=== PATIENT | female | born 1975 | race Hispanic/Latino ===

== ENCOUNTER 2018-10-24 19:42 | Emergency (ER) | payer BC ==
[~2018-10-24] VITALS: Ht 162.6 cm; Wt 99.8 kg
--- OUTSIDE RECORDS SUMMARY | 2018-10-24 19:45 | XMS REPORT ---
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 Allergies, Adverse Reactions, Alerts Allergy Name Allergy Type Status Severity Reaction(s) Onset Date Inactive Date Treating Clinician Comments No Known Allergies DA Active U 2017-06-06 00:00:00 Medications This patient has no known medications.
--- NOTE | 2018-10-24 20:31 | Diagnostic Imaging Report ---
Examination: Single AP view of the chest. COMPARISON: None. INDICATION: Cough DISCUSSION: Lines/tubes: None. Lungs: The lungs are well inflated and clear. No pneumonia or pulmonary edema. Pleura: No pleural effusion or pneumothorax. Heart and mediastinum: The heart and the mediastinum are unremarkable. Bones and soft tissues: No acute bony abnormalities. IMPRESSION: 1. No acute cardiopulmonary abnormalities. Signed by: Dr. Spike Barrera M.D. on 10/24/2018 8:28 PM
--- NOTE | 2018-10-24 20:52 | Diagnostic Imaging Report ---
EXAMINATION: Head CT without contrast. HISTORY:Headache, dizziness and left arm numbness. COMPARISON:None. TECHNIQUE: Multidetector axial images were obtained from the foramen magnum to the vertex without contrast. The images were reconstructed using brain and bone algorithms. Thin section brain images were reformatted into coronal and sagittal planes. Dose modulation, iterative reconstruction, and/or weight based adjustment of the mA/kV was utilized to reduce the radiation dose to as low as reasonably achievable. Intravenous contrast: None IMAGE QUALITY: Suboptimal evaluation particularly of skull base and posterior fossa structures due to streak artifacts. FINDINGS: Skull/scalp: No lytic or blastic. lesions. No surgical changes. Parenchyma: No abnormal density. No acute hemorrhage, mass or acute major vascular territorial infarct. Arteries: No density suggestive of thrombosis. Dural sinuses: No abnormal density suggestive of thrombosis. Ventricles: No hydrocephalus or displacement. Extra-axial spaces: Small posterior fossa, retrocerebellar extra-axial cystic lesion with mild regional mass effect represents an arachnoid cyst. Brain volume: Normal for age. Craniocervical junction: No mass, Chiari malformation, or basilar invagination. Sella: No mass. Paranasal/mastoid sinuses: Imaged portions unremarkable. IMPRESSION: No acute intracranial abnormality. Signed by: Dr. Gricelda Shepard M.D. on 10/24/2018 8:48 PM
[2018-10-24 21:15] LABS: BASOPHILS % 0.3 % (0.0-1.0); EOSINOPHILS # (AUTO) 0.4 (0.0-0.4); HEMATOCRIT 39.8 % (34.2-44.1); LYMPHOCYTES # (AUTO) 3.5 (1.0-3.2); LYMPHOCYTES % 25.7 % (18.0-39.1); MEAN CORPUSCULAR HEMOGLOBIN 28.6 pg (28-32); MEAN CORPUSCULAR HGB CONC 32.7 g/dL (31-35); MEAN CORPUSCULAR VOLUME 87.5 fL (81-99); MONOCYTES % 6.9 % (4.4-11.3); NEUTROPHILS # (AUTO) 8.6 (2.1-6.9); NEUTROPHILS % 62.9 % (38.7-80.0); PLATELET COUNT 289 x10e3/uL (140-360); RED BLOOD COUNT 4.55 x10e6/uL (3.6-5.1); RED CELL DISTRIBUTION WIDTH 14.6 % (11.7-14.4)
[2018-10-24 21:29] LABS: ALANINE AMINOTRANSFERASE 55 IU/L (0-55); ALBUMIN 3.7 g/dL (3.5-5.0); ALKALINE PHOSPHATASE 75 IU/L (40-150); BLOOD UREA NITROGEN 14 mg/dL (7-26); BUN/CREATININE RATIO 16 (6-25); CALCIUM 10.3 mg/dL (8.4-10.2); CARBON DIOXIDE 25 mmol/L (22-29); CHLORIDE 100 mmol/L (98-107); CREATINE KINASE 49 IU/L (29-168); CREATININE, SERUM 0.86 mg/dL (0.57-1.11); EST GLOMERULAR FILTRATION RATE > 60 ML/MIN (60-); GLUCOSE 101 mg/dL (74-118); SODIUM 135 mmol/L (136-145)
[2018-10-24 22:07] VITALS: BP 122/69
== END 2018-10-24 22:18 | disposition home or self-care (01) ==
LOC: ER 19:42
DX: R53.1 Weakness (principal); R05 Cough; J40 Bronchitis, not specified as acute or chronic; R42 Dizziness and giddiness; R26.2 Difficulty in walking, not elsewhere classified; F41.9 Anxiety disorder, unspecified
CPT/HCPCS: 36415; 70450; 71045; 80053; 82550; 82553; 84484; 85025; 93005; 99284

== ENCOUNTER → 2019-01-03 | Day surgery (SDC) | payer BC ==
[2018-12-28 09:20] LABS: BASOPHILS % 0.4 % (0.0-1.0); EOSINOPHILS # (AUTO) 0.3 (0.0-0.4); EOSINOPHILS % 2.9 % (0.0-6.0); HEMATOCRIT 41.6 % (34.2-44.1); HEMOGLOBIN 13.1 g/dL (12.0-16.0); LYMPHOCYTES # (AUTO) 2.5 (1.0-3.2); LYMPHOCYTES % 23.1 % (18.0-39.1); MEAN CORPUSCULAR HEMOGLOBIN 28.5 pg (28-32); MEAN CORPUSCULAR HGB CONC 31.5 g/dL (31-35); MEAN CORPUSCULAR VOLUME 90.6 fL (81-99); MONOCYTES # (AUTO) 0.6 (0.2-0.8); MONOCYTES % 5.8 % (4.4-11.3); NEUTROPHILS # (AUTO) 7.1 (2.1-6.9); NEUTROPHILS % 65.8 % (38.7-80.0); PLATELET COUNT 250 x10e3/uL (140-360); RED BLOOD COUNT 4.59 x10e6/uL (3.6-5.1); RED CELL DISTRIBUTION WIDTH 14.1 % (11.7-14.4)
[2018-12-28 09:38] LABS: ANION GAP 12.5 mmol/L (8-16); BLOOD UREA NITROGEN 10 mg/dL (7-26); BUN/CREATININE RATIO 14 (6-25); CALCIUM 9.2 mg/dL (8.4-10.2); CARBON DIOXIDE 27 mmol/L (22-29); CHLORIDE 101 mmol/L (98-107); CREATININE, SERUM 0.74 mg/dL (0.57-1.11); EST GLOMERULAR FILTRATION RATE > 60 ML/MIN (60-); GLUCOSE 217 mg/dL (74-118); POTASSIUM 4.5 mmol/L (3.5-5.1); SODIUM 136 mmol/L (136-145)
--- NOTE | 2018-12-28 10:14 | Diagnostic Imaging Report ---
EXAMINATION: CHEST 2 VIEWS INDICATION: Pre-operative COMPARISON: Chest Of 10/24/2018 FINDINGS: LINES/TUBES:None LUNGS:The lungs are well-inflated. No focal consolidation or pulmonary edema. PLEURA:No pleural effusion or pneumothorax. MEDIASTINUM:The cardiomediastinal silhouette appears normal in size and shape. BONES/SOFT TISSUES:No acute osseous injury. ABDOMEN:No free air under the diaphragm. IMPRESSION: No focal pneumonia or pulmonary edema. Signed by: Stalin Mart MD on 12/28/2018 10:11 AM
[~2019-01-03] MED LIST: BETAMETHASONE DISODIUM PHOS 6 MG/ML VIAL ONE; BUPIVACAINE HCL 0.5% INJ 30 ML VIAL INJ ONE; CEFAZOLIN SOD 1 GM/NS 50ML 100 ML IV ONE; DEXAMETHASONE SOD PHOS INJ 4 MG/ML VIAL ONE; FENTANYL CITRATE/PF 100MCG/2 ML INJ ONE; GLYCOPYRROLATE INJ 1MG/ 5 ML SYR ONE; HYDROCODONE/APAP 7.5MG-325MG 1 EA TAB ONE; IBUPROFEN 800MG/ 250ML 250 ML IV ONE; LIDOCAINE HCL 1% LOCAL INJ 20 ML VIAL ONE; LIDOCAINE HCL 2% LOCAL INJ 5 ML SDV VIAL INJ ONE; LISINOPRIL5 MG PO; MIDAZOLAM HCL 2 MG/2 ML VIAL ONE; MUPIROCIN 2% OINT 22 GM TUBE ONE; NEOSTIGMINE 5 MG/5ML SYR ONE; ONDANSETRON HCL INJ 2MG/ML 2ML 2 MG/ML VIAL ONE; PROPOFOL IV EMULSION 10 MG/ML 20 ML VIAL ONE; PROZAC10 MG PO; ROCURONIUM BROMIDE 10 MG/ML 5ML VIAL ONE; SEVOFLURANE INHAL SOLN 250 ML PEN BTL ONE
--- NOTE | 2019-01-03 09:11 | Diagnostic Imaging Report ---
EXAMINATION: FOOT LEFT AP LAT INDICATION: Postoperative COMPARISON: None FINDINGS: AP and lateral portable radiographs of the left foot demonstrate postoperative findings of Achilles repair with a single anchor in the posterior calcaneus. No unexpected fracture. Alignment appears near-anatomic. Mild soft tissue irregularity the posterior ankle soft tissues. Overlying splint material obscures fine bony detail. IMPRESSION: Postoperative changes of the left foot as above. Signed by: Stalin Mart MD on 01/03/2019 9:07 AM
[2019-01-03 09:30] VITALS: BP 147/82
--- NOTE | 2019-01-03 12:06 | Operative Report ---
DATE OF PROCEDURE: 01/03/2019 SURGEON: Franco Pedroza DPM PREOPERATIVE DIAGNOSES: 1. Equinus deformity, left foot. 2. Retrocalcaneal exostosis, left foot. 3. Plantar fasciitis, left foot. POSTOPERATIVE DIAGNOSES: Confirmed. OPERATIVE PROCEDURES: 1. Achilles tendon lengthening V-Y, left foot. 2. Retrocalcaneal exostectomy, left foot. 3. Endoscopic plantar fasciotomy, left foot. 4. Intraoperative use of fluoroscopy. 5. Trigger point shot of cortisone. 6. Application of posterior splint. ANESTHESIA: General. HEMOSTASIS: Pneumatic thigh tourniquet at 350 mmHg. PROCEDURE IN DETAIL: The patient was taken into the operating and placed on the operative table in supine position. Following induction of general anesthesia by the anesthesiologist, Webril wraps were placed on the patient's left thigh, followed by application of left thigh tourniquet. The patient was then placed on the operating table in the prone position and the following procedures were then performed. Thigh tourniquet was then elevated to 350 mmHg. Attention was then directed to the plantar aspect of the left heel, where a stab incision was performed 5 cm from the posterior aspect and 2 cm from the plantar aspect of the left heel. Stab incision was performed medially. A curved hemostat was then introduced to the medial portal and the plantar fascia was felt to be dorsal to the hemostat. A lateral incision was then performed. The cannula was then introduced through and through, and the camera was introduced to the lateral portal of the cannula. The plantar fascia was then clearly visualized. A medial one-quarter to one-half of plantar fascia was then cut utilizing a triangle knife until my plantar fascia release was felt and the muscle was clearly visualized through the scope. All areas were then copiously flushed with sterile antibiotic solution and suctioned. Procedure #2: Achilles tendon lengthening, left foot. Attention was directed to the posterior aspect of the left leg, where a curvilinear incision was performed midline through the tendon, approximately 7 to 8 cm in length. The incision was then deepened via sharp and blunt dissection down to the paratenon. The paratenon was then meticulously dissected from the tendon. A V-Y Achilles tendon lengthening was then performed. An inverted V with the apex distally and the base proximally was then performed to allow for proper lengthening of the tendon. Meticulous dissection was then performed surrounding the insertion of the tendon to the both the medial and lateral aspect. Procedure #3: Retrocalcaneal exostectomy. An intertendinous bone fragment was also removed via sharp and blunt dissection with meticulous dissection. Utilizing an osteotome and a mallet, the retrocalcaneal exostosis was excised from the operation site in toto. All rough and bony edges were rasped smooth via the use of a reciprocating rasp. Utilizing a Mitek anchor, the tendon was then re-attached to the posterior aspect of the Achilles of the calcaneus in a V-Y skin fashion to allow for proper lengthening of the tendon utilizing a Mitek anchor and then reattaching the tendon utilizing 3-0 Vicryl. All areas were then copiously flushed with sterile antibiotic solution and suction. Procedure #4: Intraoperative use of fluoroscopy was then used to make sure proper placement was applied and proper resection of bone was achieved. Closure was then obtained utilizing 3-0 Vicryl for paratenon, 4-0 Vicryl for subcutaneous tissue, and 3-0 nylon for skin respectively to all incision areas. Procedure #5: Trigger point shot of cortisone was then given to the plantar aspect of the left heel. Then, approximately 15 mL of 0.5% plain Marcaine plus 10 mL of 1% Xylocaine plain were used to achieve local anesthesia of above-mentioned surgical area. Sterile dressing was applied. Upon release of the thigh tourniquet, blood hyperemia was noted immediate to all digits of the patient's left foot. Procedure #6: Application of posterior splint. A properly placed posterior splint was then applied keeping the foot at 90 degrees with respect to the leg to try for any type of postop complications. The patient was then transferred from the OR to recovery room with vital signs stable and neurovascular status intact. No intraoperative complications were encountered. Blood loss from the surgery was minimal. The patient is to remain nonweightbearing with the aid of crutches, keep her foot elevated, and is to apply an ice pack to the ankle joint area. KATHERINE Leon/INDIA /[id number]
== END | disposition home or self-care (01) ==
LOC: OR 05:16
PROVIDERS: ATTEND Podiatrist Foot Surgery
DX: M21.6X2 Other acquired deformities of left foot (principal); M77.32 Calcaneal spur, left foot; M72.2 Plantar fascial fibromatosis; E11.9 Type 2 diabetes mellitus without complications; E78.5 Hyperlipidemia, unspecified; F41.9 Anxiety disorder, unspecified; Z01.810 Encounter for preprocedural cardiovascular examination; Z01.812 Encounter for preprocedural laboratory examination; Z01.818 Encounter for other preprocedural examination; I10 Essential (primary) hypertension
CPT/HCPCS: 27685; 28118; 29893; 36415 ×2; 71046; 73620; 80048; 82948; 85025; 93005; C1713; J0690; J0720; J1100; J2001 ×2; J2250; J2405; J2704; J3010; J3490

== ENCOUNTER → 2019-12-18 | Outpatient (CLI) | payer BC ==
[~2019-12-18] MED LIST changes: -BETAMETHASONE DISODIUM PHOS 6 MG/ML VIAL ONE; -BUPIVACAINE HCL 0.5% INJ 30 ML VIAL INJ ONE; -CEFAZOLIN SOD 1 GM/NS 50ML 100 ML IV ONE; -DEXAMETHASONE SOD PHOS INJ 4 MG/ML VIAL ONE; -FENTANYL CITRATE/PF 100MCG/2 ML INJ ONE; -GLYCOPYRROLATE INJ 1MG/ 5 ML SYR ONE; -HYDROCODONE/APAP 7.5MG-325MG 1 EA TAB ONE; -IBUPROFEN 800MG/ 250ML 250 ML IV ONE; -LIDOCAINE HCL 1% LOCAL INJ 20 ML VIAL ONE; -LIDOCAINE HCL 2% LOCAL INJ 5 ML SDV VIAL INJ ONE; -MIDAZOLAM HCL 2 MG/2 ML VIAL ONE; -MUPIROCIN 2% OINT 22 GM TUBE ONE; -NEOSTIGMINE 5 MG/5ML SYR ONE; -ONDANSETRON HCL INJ 2MG/ML 2ML 2 MG/ML VIAL ONE; -PROPOFOL IV EMULSION 10 MG/ML 20 ML VIAL ONE; -ROCURONIUM BROMIDE 10 MG/ML 5ML VIAL ONE; -SEVOFLURANE INHAL SOLN 250 ML PEN BTL ONE
--- NOTE | 2019-12-18 11:12 | Diagnostic Imaging Report ---
EXAM: US ABDOMEN COMPLETE DATE: 12/18/2019 9:52 AM INDICATION: Abdominal pain COMPARISON: None FINDINGS: The visualized pancreas appears unremarkable. The liver is normal in size measuring 15.0 cm in length. Hepatic echogenicity is within normal limits. No focal hepatic abnormality is identified. The main portal vein is patent with antegrade flow and diameter of 0.7 cm, within normal limits. There is a 5 mm echogenic, nonmobile focus identified along the gallbladder wall. There is no evidence for shadowing stones, gallbladder wall thickening, or pericholecystic fluid. There is no intra or extrahepatic biliary ductal dilatation. The common bile duct measures 5 mm. Sonographic Kuo's sign is negative. The spleen is normal in size measuring 10.4 cm in length and demonstrates an unremarkable sonographic appearance. The kidneys are normal in size measuring 11.4 centers in length on the right and 12.2 cm in length on the left. Cortical thickness and echogenicity is within normal limits. There is no evidence for solid renal mass, hydronephrosis, or shadowing calculi. The visualized portions of the IVC and aorta are within normal limits. There is no ascites present. IMPRESSION: 5 mm echogenic focus identified along the gallbladder wall likely representing a tiny polyp. Otherwise, unremarkable abdominal ultrasound examination. Signed by: Dr. Myles Uriarte MD on 12/18/2019 11:09 AM
== END ==
LOC: US 09:36
PROVIDERS: ATTEND Family Medicine
DX: R10.9 Unspecified abdominal pain (principal)
CPT/HCPCS: 76700

== ENCOUNTER 2019-12-20 19:13 | Emergency (ER) | payer BC ==
[~2019-12-20] VITALS: Ht 162.6 cm; Wt 99.8 kg
[2019-12-20] MEDS ORDERED: PANTOPRAZOLE 40 MG 10ML VIAL IV STA (21:20)
[2019-12-20] MEDS ORDERED: ONDANSETRON HCL INJ 2MG/ML 2ML 2 MG/ML VIAL IV STA (21:20)
[2019-12-20] MEDS ORDERED: DICYCLOMINE HCL 20 MG/2 ML VIAL IM ONE (21:30)
[2019-12-20 21:35] LABS: BASOPHILS % 0.3 % (0.0-1.0); EOSINOPHILS # (AUTO) 0.2 (0.0-0.4); HEMATOCRIT 42.4 % (34.2-44.1); HEMOGLOBIN 13.5 g/dL (12.0-16.0); LYMPHOCYTES # (AUTO) 3.5 (1.0-3.2); LYMPHOCYTES % 28.8 % (18.0-39.1); MEAN CORPUSCULAR HEMOGLOBIN 28.7 pg (28-32); MEAN CORPUSCULAR HGB CONC 31.8 g/dL (31-35); MEAN CORPUSCULAR VOLUME 90.2 fL (81-99); MONOCYTES # (AUTO) 0.7 (0.2-0.8); MONOCYTES % 5.6 % (4.4-11.3); NEUTROPHILS # (AUTO) 7.7 (2.1-6.9); NEUTROPHILS % 62.9 % (38.7-80.0); PLATELET COUNT 295 x10e3/uL (140-360); RED CELL DISTRIBUTION WIDTH 13.3 % (11.7-14.4)
[2019-12-20 21:52] LABS: CREATINE KINASE 34 IU/L (29-168)
[2019-12-20 21:53] LABS: AMYLASE 57 U/L (25-125); LIPASE 29 U/L (8-78)
[2019-12-20 21:58] LABS: ALANINE AMINOTRANSFERASE 21 IU/L (0-55); ALBUMIN 4.2 g/dL (3.5-5.0); ALBUMIN/GLOBULIN RATIO 1.2 (0.8-2.0); ALKALINE PHOSPHATASE 92 IU/L (40-150); ANION GAP 15.7 mmol/L (8-16); BLOOD UREA NITROGEN 11 mg/dL (7-26); BUN/CREATININE RATIO 14 (6-25); CALCIUM 9.3 mg/dL (8.4-10.2); CARBON DIOXIDE 25 mmol/L (22-29); CHLORIDE 104 mmol/L (98-107); CREATININE, SERUM 0.79 mg/dL (0.57-1.11); EST GLOMERULAR FILTRATION RATE > 60 ML/MIN (60-); GLUCOSE 90 mg/dL (74-118); POTASSIUM 3.7 mmol/L (3.5-5.1); SODIUM 141 mmol/L (136-145)
[2019-12-20] MEDS ORDERED: SODIUM CHLORIDE 0.9% 50ML 50 ML ONE (22:20)
[2019-12-20] MEDS ORDERED: IOPAMIDOL 370 MG/ML 200 ML INFUS..BTL INJ ONE (22:21)
--- NOTE | 2019-12-20 23:13 | Diagnostic Imaging Report ---
EXAM: CT Abdomen and Pelvis WITH contrast INDICATION: RIGHT FLANK PAIN Intermittent right flank pain for 2 to 3 months. COMPARISON: None. TECHNIQUE: Abdomen and pelvis were scanned utilizing a multidetector helical scanner from the lung base to the pubic symphysis after administration of IV contrast. Coronal and sagittal reformations were obtained. Routine protocol was performed. Scan was performed when during portal venous phase. IV CONTRAST: 100 mL of Isovue 370 ORAL CONTRAST: None COMPLICATIONS: None FINDINGS: LOWER THORAX: 2 mm subpleural right lower lobe pulmonary nodule. HEPATOBILIARY: No focal hepatic lesions. No biliary ductal dilation. GALLBLADDER: No radio-opaque stones or sludge. No wall thickening. SPLEEN: No splenomegaly. PANCREAS: No focal masses or ductal dilatation. ADRENALS: No adrenal nodules KIDNEYS/URETERS: Kidneys enhance symmetrically. No hydronephrosis. No cystic or solid mass lesions. No stones. GI TRACT: No abnormal distention, wall thickening, or evidence of bowel obstruction. Appendix is normal. Evidence of prior bariatric surgery. PELVIC ORGANS/BLADDER: Hysterectomy. 6.0 x 3.6 cm cystic lesion with a few thin septations in the right adnexa. Urinary bladder unremarkable. LYMPH NODES: No lymphadenopathy. VESSELS: Unremarkable. PERITONEUM / RETROPERITONEUM: No free air or fluid. BONES: Unremarkable. SOFT TISSUES: Unremarkable. IMPRESSION: 1. 6.0 x 3.6 cm cystic lesion in the right adnexa. Differential includes hydrosalpinx and ovarian cystic lesions. Recommend pelvic ultrasound for further evaluation. 2. 2 mm subpleural nodule in the right lower lobe. In a low-risk patient, Fleischner Society guidelines do not recommend further follow-up. In a patient with risk factors such as history of malignancy or smoking, consider 12 month follow-up with low-dose chest CT. 3. No urinary tract calculi. Signed by: Jerry Rosa MD on 12/20/2019 11:10 PM
--- NOTE | 2019-12-20 23:21 | Emergency Department Note ---
History of Present Illnes History of Present Illness Chief Complaint: Abdominal Complaints History of Present Illness This is a 44 year old female REPORTS INTERMITTENT RIGHT FLANK PAIN X2-3 MONTHS, WORSE TONIGHT, SENT TO ER FOR EVAL BY DR. LORENZO; PT HAD U/S AT THIS FACILITY 2 DAYS AGO; RESP RATE AND EFFORT ARE WNL, O2 SAT RA 98%. PT DESCRIBES PAIN EPIGASTRIC AND RUQ . Historian: Patient, Family Member Arrival Mode: Car Guest Services Required: No Onset (how long ago): month(s) (3) Location: UPPER ABD Quality: PAIN Radiation: Reports back Severity: moderate Onset quality: sudden Duration (how long): month(s) (3) Timing of current episode: intermittent Progression: waxing and waning Chronicity: recurrent Context: Denies recent illness, Denies recent surgery, Denies trauma/injury, D enies new medications Relieving factors: none Exacerbating factors: none Associated symptoms: Reports denies other symptoms Past Medical/Family History Physician Review I have reviewed the patient's past medical and family history. Any updates have been documented here. Past Medical History Recent Fever: No Clinical Suspicion of Infectio: No New/Unexplained Change in Ment: No Past Medical History: Hypertension, Anxiety, Depression, Hyperlipedemia Past Surgical History: Hysterectomy, Other Surgery: PARTIAL HYSTERECTOMY X3 Social History Smoking Cessation: Never Smoker Counseling Performed: No Alcohol Use: None Any Illegal Drug Use: No Other Last Tetanus: UNK Any Pre-Existing Lines (PICC,: No Review of Systems Review of Systems Constitutional: Reports no symptoms EENTM: Reports no symptoms Cardiovascular: Reports no symptoms Respiratory: Reports no symptoms Gastrointestinal: Reports as per HPI Genitourinary: Reports no symptoms Musculoskeletal: Reports no symptoms Integumentary: Reports no symptoms Neurological: Reports no symptoms Psychological: Reports no symptoms Endocrine: Reports no symptoms Hematological/Lymphatic: Reports no symptoms Physical Exam Related Data Allergies: Coded Allergies: No Known Allergies (Unverified , 10/24/18) Triage Vital Signs Vital Signs Date Time Temp Pulse Resp B/P (MAP) Pulse Ox O2 Delivery O2 Flow Rate FiO2 12/20/19 21:12 98.9 80 18 124/75 99 Room Air Vital signs reviewed: Yes Physical Exam CONSTITUTIONAL Constitutional: Present well-developed, Present well-nourished; Absent distressed HENT HENT: Present normocephalic, Present atraumatic, Present oropharynx clear/moist, Present nose normal HENT L/R: Present left ext ear normal, Present right ext ear normal EYES Eyes: Reports PERRL, Reports conjunctivae normal NECK Neck: Present ROM normal PULMONARY Pulmonary: Present effort normal, Present breath sounds normal CARDIOVASCULAR Cardiovascular: Present regular rhythm, Present heart sounds normal, Present ca pillary refill normal, Present normal rate GASTROINTESTINAL Abdominal: Present soft, Present bowel sounds normal, Present tender (EPIGASTRIC AREA) GENITOURINARY Genitourinary: Present exam deferred SKIN Skin: Present warm, Present dry MUSCULOSKELETAL Musculoskeletal: Present ROM normal NEUROLOGICAL Neurological: Present alert, Present oriented x 3, Present no gross motor or sensory deficits PSYCHOLOGICAL Psychological: Present mood/affect normal, Present judgement normal Results Laboratory Result Diagram: 12/20/19211912/20/192119 Laboratory Laboratory Tests Test 12/20/19 21:20 White Blood Count 12.30 x10e3/uL (4.8-10.8) Red Blood Count 4.70 x10e6/uL (3.6-5.1) Hemoglobin 13.5 g/dL (12.0-16.0) Hematocrit 42.4 % (34.2-44.1) Mean Corpuscular Volume 90.2 fL (81-99) Mean Corpuscular Hemoglobin 28.7 pg (28-32) Mean Corpuscular Hemoglobin Concent 31.8 g/dL (31-35) Red Cell Distribution Width 13.3 % (11.7-14.4) Platelet Count 295 x10e3/uL (140-360) Neutrophils (%) (Auto) 62.9 % (38.7-80.0) Lymphocytes (%) (Auto) 28.8 % (18.0-39.1) Monocytes (%) (Auto) 5.6 % (4.4-11.3) Eosinophils (%) (Auto) 2.0 % (0.0-6.0) Basophils (%) (Auto) 0.3 % (0.0-1.0) Neutrophils # (Auto) 7.7 (2.1-6.9) Lymphocytes # (Auto) 3.5 (1.0-3.2) Monocytes # (Auto) 0.7 (0.2-0.8) Eosinophils # (Auto) 0.2 (0.0-0.4) Basophils # (Auto) 0.0 (0.0-0.1) Absolute Immature Granulocyte (auto 0.05 x10e3/uL (0-0.1) Sodium Level 141 mmol/L (136-145) Potassium Level 3.7 mmol/L (3.5-5.1) Chloride Level 104 mmol/L (98-107) Carbon Dioxide Level 25 mmol/L (22-29) Anion Gap 15.7 mmol/L (8-16) Blood Urea Nitrogen 11 mg/dL (7-26) Creatinine 0.79 mg/dL (0.57-1.11) Estimat Glomerular Filtration Rate > 60 ML/MIN (60-) BUN/Creatinine Ratio 14 (6-25) Glucose Level 90 mg/dL (74-118) Calcium Level 9.3 mg/dL (8.4-10.2) Total Bilirubin 0.2 mg/dL (0.2-1.2) Aspartate Amino Transf (AST/SGOT) 18 IU/L (5-34) Alanine Aminotransferase (ALT/SGPT) 21 IU/L (0-55) Alkaline Phosphatase 92 IU/L (40-150) Creatine Kinase 34 IU/L (29-168) Creatine Kinase MB 0.60 ng/mL (0-5.0) Troponin I < 0.001 ng/mL (0-0.300) Total Protein 7.8 g/dL (6.5-8.1) Albumin 4.2 g/dL (3.5-5.0) Globulin 3.6 g/dL (2.3-3.5) Albumin/Globulin Ratio 1.2 (0.8-2.0) Amylase Level 57 U/L (25-125) Lipase 29 U/L (8-78) Human Chorionic Gonadotropin, Qual Negative (NEGATIVE) Imaging Imaging results reviewed: Yes Impressions Procedure: [id number] CT/CT ABDOMEN/PELVIS W Exam Date: 12/20/19 Exam Time: 2219 REPORT STATUS: Signed EXAM: CT Abdomen and Pelvis WITH contrast INDICATION: RIGHT FLANK PAIN Intermittent right flank pain for 2 to 3 months. COMPARISON: None. TECHNIQUE: Abdomen and pelvis were scanned utilizing a multidetector helical scanner from the lung base to the pubic symphysis after administration of IV contrast. Coronal and sagittal reformations were obtained. Routine protocol was performed. Scan was performed when during portal venous phase. IV CONTRAST: 100 mL of Isovue 370 ORAL CONTRAST: None COMPLICATIONS: None FINDINGS: LOWER THORAX: 2 mm subpleural right lower lobe pulmonary nodule. HEPATOBILIARY: No focal hepatic lesions. No biliary ductal dilation. GALLBLADDER: No radio-opaque stones or sludge. No wall thickening. SPLEEN: No splenomegaly. PANCREAS: No focal masses or ductal dilatation. ADRENALS: No adrenal nodules KIDNEYS/URETERS: Kidneys enhance symmetrically. No hydronephrosis. No cystic or solid mass lesions. No stones. GI TRACT: No abnormal distention, wall thickening, or evidence of bowel obstruction. Appendix is normal. Evidence of prior bariatric surgery. PELVIC ORGANS/BLADDER: Hysterectomy. 6.0 x 3.6 cm cystic lesion with a few thin septations in the right adnexa. Urinary bladder unremarkable. LYMPH NODES: No lymphadenopathy. VESSELS: Unremarkable. PERITONEUM / RETROPERITONEUM: No free air or fluid. BONES: Unremarkable. SOFT TISSUES: Unremarkable. IMPRESSION: 1. 6.0 x 3.6 cm cystic lesion in the right adnexa. Differential includes hydrosalpinx and ovarian cystic lesions. Recommend pelvic ultrasound for further evaluation. 2. 2 mm subpleural nodule in the right lower lobe. In a low-risk patient, Fleischner Society guidelines do not recommend further follow-up. In a patient with risk factors such as history of malignancy or smoking, consider 12 month follow-up with low-dose chest CT. 3. No urinary tract calculi. Signed by: Jos Abdul MD on 12/20/2019 11:10 PM Dictated By: JOS ABDUL MD 09 Transcribed By: ELISA on 12/20/192309 Procedure: [id number] US/US TRANSVAGINAL Exam Date: 12/21/19 Exam Time: 2344 REPORT STATUS: Signed EXAM: Transabdominal and Transvaginal Pelvic Ultrasound INDICATION: EVAL CYSTIC MASS RIGHT ADNEXA COMPARISON: CT from today TECHNIQUE: Grayscale transverse and sagittal transabdominal and transvaginal images were obtained of the pelvis. Transvaginal imaging was medically necessary to better evaluate the adnexa. FINDINGS: Status post hysterectomy. Right ovary: 6.5 x 3.3 x 6.4 cm including a septated cystic lesion measuring 5.5 x 2.4 x 6.0 cm with thick septation that demonstrate vascularity on color Doppler. 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 Recommend gynecologic consultation and consider nonemergent pelvis MRI for further characterization Signed by: Jos Abdul MD on 12/21/2019 12:49 AM Dictated By: JOS ABDUL MD Transcribed By: ELISA on 12/21/1949 COPY TO: YOHANA YOUNG MD~ Procedures 12 Lead ECG Interpretation ECG Interpretation : ECG: ECG 1 Guest Services: Interpreted by ED physician Date: Dec 20, 2019 Time: 21:33 Rhythm: sinus rhythm Rate: normal BPM: 71 QRS axis: normal T waves flattening: I, II, III, aVL, aVF, V1-V6 Q waves: V1, V2 Clinical Impression: abnormal ECG Assessment & Plan Medical Decision Making MDM PT WITH INTERMITTENT UPPER ABD PAIN FOR 3 MONTHS, HAD U/S 2 DAYS AGO SHOWED A SINGLE GALLBLADDER POLYP CBC, CMP, AMYLASE, LIPASE, UA, CT ABD PELVIS, EKG, CARDIAC ENZYMES ORDERED TO EVAL FOR MYOCARDIAL INFARCTION, UTI, PANCREATITIS, COLITIS, ELEVATED LFT'S, ELECTROLYTE ABNORMALITY PROTONIX 40 MG IV ORDERED BENTYL 20 MG IM ORDERED ZOFRAN 4 MG IV ORDERED Assessment & Plan Final Impression: (1) Abdominal pain (2) Ovarian cystic mass Depart Disposition: HOME, SELF-CARE Last Vital Signs Date Time Temp Pulse Resp B/P (MAP) Pulse Ox O2 Delivery O2 Flow Rate FiO2 12/20/19 21:12 98.9 80 18 124/75 99 Room Air Home Meds Reported Medications Fluoxetine Hcl (PROZAC) 10 Mg Capsule, 10 MG PO DAILY 12/28/18 Lisinopril (LISINOPRIL) 5 Mg Tablet, 5 MG PO DAILY 12/28/18 Medications in the ED Pantoprazole Sodium 40 mg NOW STAT IV Last administered on 12/20/19at 21:31; Admin Dose 40 MG; Start 12/20/19 at 21:20; Stop 12/20/19 at 21:24; Status DC Dicyclomine HCl 20 mg ONCE ONCE IM Last administered on 12/20/19at 21:31; Admin Dose 20 MG; Start 12/20/19 at 21:30; Stop 12/20/19 at 21:31; Status DC Ondansetron HCl 4 mg NOW STAT IV Last administered on 12/20/19at 21:31; Admin Dose 4 MG; Start 12/20/19 at 21:20; Stop 12/20/19 at 21:24; Status DC Sodium Chloride 50 ml @ ud STK-MED ONCE .ROUTE ; Start 12/20/19 at 22:20; Stop 12/20/19 at 22:13; Status DC Iopamidol 74,000 mg STK-MED ONCE INJ ; Start 12/20/19 at 22:21; Stop 12/20/19 at 22:14; Status DC YOHANA YOUNG MD Dec 20, 2019 23:21
[2019-12-20 23:53] LABS: BILIRUBIN,URINE SMALL (NEGATIVE); CLARITY,URINE SL CLOUDY (CLEAR); COLOR,URINE YELLOW (YELLOW); KETONES,URINE 1+ (NEGATIVE); LEUKOCYTE ESTERASE ,URINE NEGATIVE (NEGATIVE); NITRITE,URINE NEGATIVE (NEGATIVE); PROTEIN,URINE DIPSTICK NEGATIVE (NEGATIVE); URINE UROBILINOGEN 0.2 mg/dL (0.2 - 1)
[2019-12-20 23:59] LABS: AMORPHOUS SEDIMENT,URINE MODERATE (FEW); BACTERIA,URINE FEW /HPF; EPITHELIAL CELLS,URINE MANY /LPF; RBC,URINE 0-5 /HPF (0-5)
--- NOTE | 2019-12-21 00:52 | Diagnostic Imaging Report ---
EXAM: Transabdominal and Transvaginal Pelvic Ultrasound INDICATION: EVAL CYSTIC MASS RIGHT ADNEXA COMPARISON: CT from today TECHNIQUE: Grayscale transverse and sagittal transabdominal and transvaginal images were obtained of the pelvis. Transvaginal imaging was medically necessary to better evaluate the adnexa. FINDINGS: Status post hysterectomy. Right ovary: 6.5 x 3.3 x 6.4 cm including a septated cystic lesion measuring 5.5 x 2.4 x 6.0 cm with thick septation that demonstrate vascularity on color Doppler. 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 Recommend gynecologic consultation and consider nonemergent pelvis MRI for further characterization Signed by: Jerry Rosa MD on 12/21/2019 12:49 AM
--- OUTSIDE RECORDS SUMMARY | 2019-12-26 18:16 | XMS REPORT | Continuity of Care Document ---
Author Author [facility] t Organization [facility] Address [address] [place] [address] Phone Unavailable Care Team Providers Care Shipwright Supervisor Name Role Phone GERMAN LORENZO PCP Dru YOUNG Attphys Unavailable Tomasa LORENZO MD Attphys Unavailable JEIMY THORNTON Attphylatosha Unavailable Payers Payer Name Policy Type Policy Number Effective Date Expiration Date S omi [employer] [place] P[place] [id number] CH I [facility] Problems This patient has no known problems. Allergies, Adverse Reactions, Alerts Allergy Name Allergy Type Status Severity Reaction(s) Onset Date Inacti ve Date Treating Clinician Comments Source No Known Allergies DA Active U 2017-06-06 00:00:00 [facility] Medications This patient has no known medications. Procedures Procedure Date / Time Performed Performing Clinician Sour e Computed tomography of brain without radiopaque contrast 201 10-30-03 00:00:00 YOHANA YOUNG [facility] Encounters Start Date/Time End Date/Time Encounter Type Admission Type Attendi [facility] Care Department Encounter ID Source 2018-10-24 19:42:00 2018-10-24 22:18:00 Departed Emergency Room 1 YOHANA YOUNG [facility] [id number] [facility] Results Test Description Test Time Test Comments Results Result Comments Source LACTIC ACID 2019-12-21 23:47:00 Test Item LACTIC ACID (test code = LACT) 0.9 mmol/L 0.4-1.9 N URINALYSIS [id number] 21:05:00* Test Item Value Reference Range Interpretation Comments UA COLOR (test code = COLU) Light-Yellow YELLOW UA APPEARANCE (test code = APPU) CLEAR CLEAR UA GLUCOSE DIPSTICK (test code = DGLUU) NEGATIVE mg/dL NEGATIVE UA BILIRUBIN DIPSTICK (test code = BILU) NEGATIVE mg/dL NEGATIVE UA KETONE DIPSTICK (test code = KETU) NEGATIVE mg/dL NEGATIVE UA SPECIFIC GRAVITY (test code = SGU) 1.013 1.001-1.035 UA BLOOD DIPSTICK (test code = JUAN) Negative mg/dL NEGATIVE UA PH DIPSTICK (test code = DRISS) 6.5 5.0-8.0 UA PROTEIN DIPSTICK (test code = PROU) NEGATIVE mg/dL NEGATIVE UA UROBILINIOGEN DIPSTICK (test code = URO) Normal mg/dL NEGATIVE UA NITRITE DIPSTICK (test code = BOONE) NEGATIVE NEGATIVE UA LEUKOCYTE ESTERASE W REFLEX (test code = LEUUR) NEGATIVE Nadiya/uL NEGATIVE UA WBC (test code = WBCU) 0-5 per HPF 0-5 UA RBC (test code = RBCU) 3-5 #/HPF 0-5 UA EPITHELIAL CELLS (test code = EPIU) FEW per HPF FEW UA BACTERIA (test code = BACU) TRACE #/HPF NONE UA MUCUS (test code = MUCU) FEW #/LPF FEW Urine Source? 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 COMPARISON: None available. Loca tion: TH. CT of abdomen and pelvis with and without IV contrast: 1 00 mL of Isovue-370. Automated exposure control. CT ABDOMEN : The lung bases are clear. Dependent changes. The liver is enhancing homogeneously. No mass or lesions. Portal vein and he patic artery are patent. No perihepatic fluid. Gallbladder is without ra diopaque stones. The liver measured 19.2 cm in length. The spleen is not enlarged and enhanced homogeneously. Patient is post gastri c sleeve procedure. The stomach distended incompletely but it is unremark able. Dilated distal esophagus without wall thickening. Pancreas is enhancing homogeneously. Unremarkable adrenals. Kidneys are fr ee from hydroureteronephrosis. Homogeneous enhancement. Bilateral excret ion. Subcentimeter low-attenuation lesion in the posterior right lower po le is too small to be characterized. Calyceal stone in the right upper po le measuring 1 to 2 mm. Medullary nephrocalcinosis as well on the right. No calyceal stones on the left on the precontrast sequence. No pathologic adenopathy. Well opacified abdominal and pelvic vasculatur e. No bowel obstruction. No colitis or diverticulitis or enteriti s. Constipation. CT PELVIS: Appendix is you l. Pelvic bowel loops are unobstructed. Decompressed urinary blad mirtha is limited. Patient is post hysterectomy. Pelvic inclusion cyst with out enhancement in the right posterior pelvis measuring 6.4 cm in width wi th average Hounsfield unit measurement of 6. No free fluid or free air or abscess. 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 Subcutaneous tissues and the musculature are normal in appearance. No lytic or blastic lesions noted within the bony skeleton. DJD. Mild sclerosis of the left SI joint. IMPRESSION: Pelvic inclusion cyst in the right pos terior pelvis measuring 6.4 cm. No enhancement. Patient is post hyster ectomy. Ovaries are not seen either suggestive of oophorectomy. Correl ate with surgical history. No hydroureteronephrosis with nonob structing punctate 1 to 2 mm right upper pole calyceal stone. Medullary nephrocalcinosis as well on the right. Decompressed urinary bladder is limited. Normal appendix without bowel obstruction or colitis or diver ticulitis or enteritis. Electronically Signed by Arnav taylor 12/21/2019 at 2101 Reported and signed by: Alen sorto M.D. CC: Goldie Valerio MD; Aryan Kim NP Technologist:ROXANA DILLON, CTDI: DLP: T rnscb Date/Time: 12/21/2019 (2101) t.SDR.TH4 Orig Print D /T: S: 12/21/2019 (2104) PAGE 2 Signed Report UR HCG [id number] 20:57:00* Test Item Value Reference Range Interpretation Comments UR HCG QUAL (test code = HCGQLU) NEGATIVE This HCGQL test is NOT applicable for MALE patients.Check with nurse about probable order error.If Tumor Marker Test needed, nurse should order test "HCGTU"(Test #550.03658) URINALYSIS [id number] 20:55:00* Test Item Value Reference Range Interpretation Comments UA COLOR (test code = COLU) Light-Yellow YELLOW UA APPEARANCE (test code = APPU) CLEAR CLEAR UA GLUCOSE DIPSTICK (test code = DGLUU) NEGATIVE mg/dL NEGATIVE UA BILIRUBIN DIPSTICK (test code = BILU) NEGATIVE mg/dL NEGATIVE UA KETONE DIPSTICK (test code = KETU) NEGATIVE mg/dL NEGATIVE UA SPECIFIC GRAVITY (test code = SGU) 1.013 1.001-1.035 UA BLOOD DIPSTICK (test code = JUAN) Negative mg/dL NEGATIVE UA PH DIPSTICK (test code = DRISS) 6.5 5.0-8.0 UA PROTEIN DIPSTICK (test code = PROU) NEGATIVE mg/dL NEGATIVE UA UROBILINIOGEN DIPSTICK (test code = URO) Normal mg/dL NEGATIVE UA NITRITE DIPSTICK (test code = BOONE) NEGATIVE NEGATIVE UA LEUKOCYTE ESTERASE W REFLEX (test code = LEUUR) NEGATIVE Nadiya/uL NEGATIVE UA WBC (test code = WBCU) per HPF 0-5 UA RBC (test code = RBCU) per HPF 0-5 UA EPITHELIAL CELLS (test code = EPIU) per HPF Few UA BACTERIA (test code = BACU) per HPF NONE Urine Source? Clean CatchBASIC METABOLIC [id number] 20:37:00* Test Item Value Reference Range Interpretation Comments SODIUM (test code = NA) 140 mmol/L 136-145 N POTASSIUM (test code = K) 4.1 mmol/L 3.5-5.1 N CHLORIDE (test code = CL) 107.0 mmol/L 98-107 N CARBON DIOXIDE (test code = CO2) 24.0 mmol/L 21-32 N ANION GAP (test code = GAP) 13.1 10-20 N GLUCOSE (test code = GLU) 70 mg/dL 74-106 L BLOOD UREA NITROGEN (test code = BUN) 11 mg/dL 7-18 N GLOMERULAR FILTRATION RATE (test code = GFR) > 60 mL/min >=60 Estimated GFR by using Modified MDRD formula.Chronic kidney disease is defined as either kidney damageor GFR <60 mL/min/1.73 m2 for >3 months. CREATININE (test code = CREAT) 0.90 mg/dL 0.55-1.02 N Note change in reference range due to change in reagent. BUN/CREATININE RATIO (test code = BUN/CREA) 12.2 10-20 N CALCIUM (test code = CA) 10.3 mg/dL 8.5-10.1 H HEPATIC FUNCTION [id number] 20:37:00* Test Item Value Reference Range Interpretation Comments TOTAL PROTEIN (test code = PROT) 7.7 gram/dL 6.4-8.2 N ALBUMIN (test code = ALB) 4.1 g/dL 3.4-5.0 N GLOBULIN (test code = GLOB) 3.6 gram/dL 2.7-4.2 N ALBUMIN/GLOBULIN RATIO (test code = A/G) 1.1 0.75-1.50 N BILIRUBIN TOTAL (test code = BILT) 0.20 mg/dL 0.0-1.0 N BILIRUBIN DIRECT (test code = BILD) 0.07 mg/dL 0.0-0.20 N SGOT/AST (test code = AST) 22 IUnit/L 15-37 N SGPT/ALT (test code = ALT) 28 IUnit/L 12-78 N ALKALINE PHOSPHATASE TOTAL (test code = ALKP) 97 IUnit/L 45-117 N Note change in reference range due to change in reagent. [id number] 20:37:00* Test Item Value Reference Range Interpretation Comments LIPASE (test code = LIP) 162 U/L 73.0-393.0 N HCG SERUM [id number] 20:37:00* Test Item Value Reference Range Interpretation Comments HCG SERUM QUAL (test code = HCGQL) NEGATIVE NEGATIVE This HCGQL test is NOT applicable for MALE patients.Check with nurse about probable order error.If Tumor Marker Test needed, nurse should order test "HCGTU"(Test #550.56873) [id number] 20:37:00* Test Item Value Reference Range Interpretation Comments TROPONIN-I (test code = TROPI) <0.015 ng/mL 0-0.045 N BASIC METABOLIC [id number] 20:30:00* Test Item Value Reference Range Interpretation Comments SODIUM (test code = NA) mmol/L 136-145 POTASSIUM (test code = K) mmol/L 3.5-5.1 CHLORIDE (test code = CL) mmol/L 98-107 CARBON DIOXIDE (test code = CO2) mmol/L 21-32 ANION GAP (test code = GAP) 10-20 GLUCOSE (test code = GLU) mg/dL 74-106 BLOOD UREA NITROGEN (test code = BUN) mg/dL 7-18 GLOMERULAR FILTRATION RATE (test code = GFR) mL/min >=60 CREATININE (test code = CREAT) mg/dL 0.55-1.02 BUN/CREATININE RATIO (test code = BUN/CREA) 10-20 CALCIUM (test code = CA) mg/dL 8.5-10.1 HEPATIC FUNCTION [id number] 20:30:00* Test Item Value Reference Range Interpretation Comments TOTAL PROTEIN (test code = PROT) gram/dL 6.4-8.2 ALBUMIN (test code = ALB) g/dL 3.4-5.0 GLOBULIN (test code = GLOB) gram/dL 2.7-4.2 ALBUMIN/GLOBULIN RATIO (test code = A/G) 0.75-1.50 BILIRUBIN TOTAL (test code = BILT) mg/dL 0.0-1.0 BILIRUBIN DIRECT (test code = BILD) mg/dL 0.0-0.20 SGOT/AST (test code = AST) IUnit/L 15-37 SGPT/ALT (test code = ALT) IUnit/L 12-78 ALKALINE PHOSPHATASE TOTAL (test code = ALKP) IUnit/L 45-117 [id number] 20:30:00* Test Item Value Reference Range Interpretation Comments LIPASE (test code = LIP) U/L 73.0-393.0 HCG SERUM [id number] 20:30:00* Test Item Value Reference Range Interpretation Comments HCG SERUM QUAL (test code = HCGQL) NEGATIVE NEGATIVE This HCGQL test is NOT applicable for MALE patients.Check with nurse about probable order error.If Tumor Marker Test needed, nurse should order test "HCGTU"(Test #550.24736) [id number] 20:30:00* Test Item Value Reference Range Interpretation Comments TROPONIN-I (test code = TROPI) ng/mL 0-0.045 CBC W/O [id number] 20:19:00* Test Item Value Reference Range Interpretation Comments WHITE BLOOD CELL (test code = WBC) 13.0 K/mm3 4.5-12.5 H RED BLOOD CELL (test code = RBC) 4.72 mill/mm3 3.7-5.2 N HEMOGLOBIN (test code = HGB) 13.6 gram/dL 11.5-15.5 N HEMATOCRIT (test code = HCT) 41.5 % 36.0-46.0 N MEAN CELL VOLUME (test code = MCV) 87.9 fL 80-98 N MEAN CELL HGB (test code = MCH) 28.8 picogram 27.0-33.0 N MEAN CELL HGB CONCETRATION (test code = MCHC) 32.8 gram/dL 33.0-36. 0 L RED CELL DISTRIBUTION WIDTH (test code = RDW) 13.3 % 11.6-16. 2 N PLATELET COUNT (test code = PLT) 320 K/mm3 150-450 N MEAN PLATELET VOLUME (test code = MPV) 11.2 fL 6.7-11.0 H US [id number] 00:37:00 [facility] : 1975 Sex: F [facility] [address] [place] [address] Patient Name: THADDEUS KELLER MR #: [id number] : 1975 Age/Sex: 44/F Req #: [id number] [facility] Physician: Juju foleyered by: YOHANA YOUNG MD Report #: [id number] Location: ER Room/Bed: Procedure: [id number] US/US TRANSVAGINAL Exam Date: 12/21/19 Exam Time: 2344 REPORT STATUS: Signed EXAM: Transabdominal and Transvaginal Pelvic Ultrasound INDICATION: EVAL CYSTIC MASS RIGHT ADNEXA COMPARISON: CT from today TECHNIQUE: Grayscale transverse and sagittal transabdominal and transvaginal images were obtained of the pelvis. Transvaginal imaging was me dically necessary to better evaluate the adnexa. FINDINGS: Stat us post hysterectomy. Right ovary: 6.5 x 3.3 x 6.4 cm including a septated cystic lesion measuring 5.5 x 2.4 x 6.0 cm with thick septation that demonstra te vascularity on color Doppler. Left ovary: Size: 2.7 x 2.2 x 2.0 cm Mass/Cyst: None Cul-de-sac: No free fluid IMPRESSION: 6.0 cm septated right ovarian cystic lesion concerning for a cystic ovarian neop lasm. Recommend gynecologic consultation and consider nonemergent pelvis MRI f or further characterization Signed by: Jos Rosa MD on 12/21/2019 12:4 9 AM Dictated By: JOS ROSA MD Transcribed By: ELISA on 12/21/1948 COPY TO: YOHANA YOUNG MD CT ABDOMEN/PELVIS [id number] 23:00:00 [facility] : 1975 Sex: F [facility] [address] [address] Patient Name: THADDEUS KELLER MR #: [id number] : 1975 Age/Sex: 44/F Req #: [id number] [facility] Physician: Juju cardoza by: YOHANA YOUNG MD Report #: [id number] Location: ER Room/Bed: Procedure: [id number] CT/CT ABDOMEN/PELVIS W Exam Da te: 12/20/19 Exam Time: 2219 REPORT STATUS: Signed EXAM: CT Abdomen and Pelvis WITH c ontrast INDICATION: RIGHT FLANK PAIN Intermittent right flank pain for 2 to 3 months. COMPARISON: None. TECHNIQUE: Abdomen and pelvis were scanned util izing a multidetector helical scanner from the lung base to the pubic symphysi s after administration of IV contrast. Coronal and sagittal reformations were obtained. Routine protocol was performed. Scan was performed when during jose l venous phase. IV CONTRAST: 100 mL of Isovue 370 ORAL CONTRAS T: None COMPLICATIONS: None FINDINGS: LOWER THORAX: 2 mm subpleural right lower lobe pulmonary nodule. HEPATOBILIARY: No f ocal hepatic lesions. No biliary ductal dilation. GALLBLADDER: No radio-op aque stones or sludge. No wall thickening. SPLEEN: No splenomegaly. PANCREAS: No focal masses or ductal dilatation. ADRENALS: No adrenal nodu les KIDNEYS/URETERS: Kidneys enhance symmetrically. No hydronephrosis. No cystic or solid mass lesions. No stones. GI TRACT: No abnormal diste ntion, wall thickening, or evidence of bowel obstruction. Appendix is no rmal. Evidence of prior bariatric surgery. PELVIC ORGANS/BLADDER: Hysterect dominick. 6.0 x 3.6 cm cystic lesion with a few thin septations in the right adnexa . Urinary bladder unremarkable. LYMPH NODES: No lymphadenopathy. VESSE LS: Unremarkable. PERITONEUM / RETROPERITONEUM: No free air or fluid. BONES: Unremarkable. SOFT TISSUES: Unremarkable. IMPRESSIO N: 1. 6.0 x 3.6 cm cystic lesion in the right adnexa. Differential includes hydrosalpinx and ovarian cystic lesions. Recommend pelvic ultrasound for furt her evaluation. 2. 2 mm subpleural nodule in the right lower lobe. In a low-ri sk patient, Fleischner Society guidelines do not recommend further follow-up. In a patient with risk factors such as history of malignancy or smoking, consi mirtha 12 month follow-up with low-dose chest CT. 3. No urinary tract calculi. Signed by: Jos Rosa MD on 12/20/2019 11:10 PM Dictated By: RDAHA ROSA MD 09 [place] scribed By: ELISA on 12/20/192309 COPY TO: YOHANA YOUNG MD US ABDOMEN [id number] 11:05:00 [facility] : 1975 Sex: F [facility] [address] [address] Patient Name: THADDEUS KELLER MR #: [id number] : 1975 Age/Sex: 44/F Req #: [id number] Adm Physician: Juju foleyered by: MAURA BANUELOS, GERMAN Randolph MD Report #: [id number] Location: US Room/Bed: Procedure: [id number] US/US ABDOMEN COMPLETE Exam Jean Marie e: 12/18/19 Exam Time: 951 REPORT STATUS: Signed EXAM: US ABDOMEN COMPLETE JEAN MARIE E: 12/18/2019 9:52 AM INDICATION: Abdominal pain COMPARISON: None FINDINGS: The visualized pancreas appears unremarkable. The liver is normal in size measuring 15.0 cm in length. Hepatic echogenicity is within no rmal limits. No focal hepatic abnormality is identified. The main portal vein is patent with antegrade flow and diameter of 0.7 cm, within normal limits. There is a 5 mm echogenic, nonmobile focus identified along the gallbladder wall. There is no evidence for shadowing stones, gallbladder wall thickening, or pericholecystic fluid. There is no intra or extrahepatic biliary ductal di latation. The common bile duct measures 5 mm. Sonographic Kuo's sign is neg ative. The spleen is normal in size measuring 10.4 cm in length and demonst rates an unremarkable sonographic appearance. The kidneys are normal in s ize measuring 11.4 centers in length on the right and 12.2 cm in length on the left. Cortical thickness and echogenicity is within normal limits. There is no evidence for solid renal mass, hydronephrosis, or shadowing calculi. The visualized portions of the IVC and aorta are within normal limits. There is no ascites present. IMPRESSION: 5 mm echogenic focus identified along the gallbladder wall likely representing a tiny polyp. Otherwise, u nremarkable abdominal ultrasound examination. Signed by: Dr. Myles Uriarte MD on 12/18/2019 11:09 AM Dictated By: MYLES URIARTE MD Electronically Si gned By: MYLES URIARTE MD on 12/18/19 1109 Transcribed By: ELISA on 12/18/19 1 109 COPY TO: GERMAN LORENZO FOOT LEFT AP [id number] 09:06:[address] [address] Patient Name: THADDEUS KELLER MR #: [id number] : 1975 Age/Sex: 43/F Req #: [id number] Adm Physician: Ordered by: JEIMY THORNTON DPAlex Report #: [id number] Location: OR Room/Bed: Procedure: [id number] DX/VIC T LEFT AP LAT Exam Date: 01/03/19 Exam Time: 819 REPORT STATUS: Signed EXAMINATIO N: FOOT LEFT AP LAT INDICATION: Postoperative COMPARISON: None FINDINGS: AP and lateral portable radiographs of the left foot de monstrate postoperative findings of Achilles repair with a single anchor in th e posterior calcaneus. No unexpected fracture. Alignment appears near-anatomic . Mild soft tissue irregularity the posterior ankle soft tissues. Overlying sp lint material obscures fine bony detail. IMPRESSION: Postoperative yo nges of the left foot as above. Signed by: Vicente Garcia MD on 01/03/2019 9:0 7 AM Dictated By: VICENTE GARCIA MD 6 Transcribed By: ELISA on 01/03/19906 COPY TO: JEIMY THORNTON DPM CHEST 2 [id number] 10:10:00 [facility] [address] [place] [address] Patient Name: THADDEUS KELLER MR #: [id number] : 1975 Age/Sex: 43/F Req #: [id number] Adm Physician: Ordered by: JEIMY THORNTON DPM Report #: [id number] Location: OR Room/Bed: Procedure: [id number] DX/HANSEL ST 2 VIEWS Exam Date: 12/28/18 Exam Time: 929 REPORT STATUS: Signed EXAMINATION: C HEST 2 VIEWS INDICATION: Pre-operative COMPARISON: Chest Of FINDINGS: LINES/TUBES:None LUNGS:The lungs are well- inflated. No focal consolidation or pulmonary edema. PLEURA:No pleural effu ofelia or pneumothorax. MEDIASTINUM:The cardiomediastinal silhouette appears normal in size and shape. BONES/SOFT TISSUES:No acute osseous injury. ABDOMEN:No free air under the diaphragm. IMPRESSION: No focal pneumon ia or pulmonary edema. Signed by: Vicente Garcia MD on 12/28/2018 10:11 AM Dictated By: VICENTE GARCIA MD 10 COPY TO: JEIMY THORNTON Sodium [id number] 21:36:00* Test Item Value Reference Range Interpretation Comments Sodium Level (test code = 2951-2) 135 136-145 L [facility]assium [id number] 21:36:00* Test Item Value Reference Range Interpretation Comments Potassium Level (test code = 2823-3) 4.0 3.5-5.1 [facility]entonChloride [id number] 21:36:00* Test Item Value Reference Range Interpretation Comments Chloride Level (test code = 2075-0) 100 98-107 [facility]entonCarbon Dioxide [id number] 21:36:00* Test Item Value Reference Range Interpretation Comments Carbon Dioxide Level (test code = 2028-9) 25 22-29 [facility] DentonAnion [id number] 21:36:00* Test Item Value Reference Range Interpretation Comments Anion Gap (test code = 85424-3) 14.0 8-16 [facility]entonBlood Urea [id number] 21:36:00* Test Item Value Reference Range Interpretation Comments Blood Urea Nitrogen (test code = 3094-0) 14 7-26 [facility] DentonCreatinine2019-09-04 21:36:00* Test Item Value Reference Range Interpretation Comments Creatinine (test code = 2160-0) 0.86 0.57-1.11 [facility]entonBUN/Creatinine [id number] 21:36:00* Test Item Value Reference Range Interpretation Comments BUN/Creatinine Ratio (test code = 3097-3) 16 6-25 [facility] DentonEstimat Glomerular Filtration Rate 2018-10-24 21:36:00* Test Item Value Reference Range Interpretation Comments Estimat Glomerular Filtration Rate (test code = 289234022) > 60 >60 Ranges were taken from the National Kidney Disease Education Program and the [facility] literature.Reference ranges:60 or greater: Nawnbq01-52 ( for 3 consecutive months): Chronic kidney disease 15 or less: Kidney failureBaylor Scott and White the [facility] DentonGlucose [id number] 21:36:00* Test Item Value Reference Range Interpretation Comments Glucose Level (test code = KVQ6947) 101 74-118 [facility] DentonCalcium [id number] 21:36:00* Test Item Value Reference Range Interpretation Comments Calcium Level (test code = 61853-5) 10.3 8.4-10.2 H [facility] DentonTotal [id number] 21:36:00* Test Item Value Reference Range Interpretation Comments Total Bilirubin (test code = 1975-2) 0.3 0.2-1.2 [facility] DentonAspartate Amino Transf (AST/SGOT) 2018-10-24 21:36:00* Test Item Value Reference Range Interpretation Comments Aspartate Amino Transf (AST/SGOT) (test code = Aspartate Amino Transf (AST/SGOT)) 40 5-34 H [facility] DentonAlanine Aminotransferase (ALT/SGPT) 2018-10-24 21:36:00* Test Item Value Reference Range Interpretation Comments Alanine Aminotransferase (ALT/SGPT) (test code = 1742-6) 55 0-55 [facility] DentonTotal [id number] 21:36:00* Test Item Value Reference Range Interpretation Comments Total Protein (test code = 2885-2) 7.3 6.5-8.1 [facility] DentonAlbumin2019-09-04 21:36:00* Test Item Value Reference Range Interpretation Comments Albumin (test code = 1751-7) 3.7 3.5-5.0 [facility] DentonGlobulin2019-09-04 21:36:00* Test Item Value Reference Range Interpretation Comments Globulin (test code = 37661-7) 3.6 2.3-3.5 H [facility] DentonAlbumin/Globulin [id number] 21:36:00 * Test Item Value Reference Range Interpretation Comments Albumin/Globulin Ratio (test code = 1759-0) 1.0 0.8-2.0 [facility] DentonAlkaline Dxdlvpgqrws2409-57-26 21:36:00* Test Item Value Reference Range Interpretation Comments Alkaline Phosphatase (test code = 6768-6) 75 40-150 [facility] DentonCreatine [id number] 21:36:00* Test Item Value Reference Range Interpretation Comments Creatine Kinase (test code = 2157-6) 49 29-168 [facility] DentonCreatine Kinase TH4362-87-10 21:36:00* Test Item Value Reference Range Interpretation Comments Creatine Kinase MB (test code = 71174-9) 0.50 0-5.0 [facility] DentonTroponin Q3198-83-70 21:36:00* Test Item Value Reference Range Interpretation Comments Troponin I (test code = ECQ8402) < 0.001 0-0.300 [facility] DentonWhite Blood Kxclh1983-90-35 21:16:00* Test Item Value Reference Range Interpretation Comments White Blood Count (test code = 6690-2) 13.70 4.8-10.8 H [facility] DentonRed Blood Jddgx0804-90-93 21:16:00* Test Item Value Reference Range Interpretation Comments Red Blood Count (test code = 789-8) 4.55 3.6-5.1 [facility] DentonHemoglobin2019-09-04 21:16:00* Test Item Value Reference Range Interpretation Comments Hemoglobin (test code = 85847-1) 13.0 12.0-16.0 [facility] DentonHematocrit2019-09-04 21:16:00* Test Item Value Reference Range Interpretation Comments Hematocrit (test code = 4544-3) 39.8 34.2-44.1 [facility] DentonMean Corpuscular Nhiigc7209-14-87 21:16:00* Test Item Value Reference Range Interpretation Comments Mean Corpuscular Volume (test code = 787-2) 87.5 81-99 [facility]entonMean Corpuscular Tatpckwmiu6324-75-28 21:16:00* Test Item Value Reference Range Interpretation Comments Mean Corpuscular Hemoglobin (test code = 785-6) 28.6 28-32 [facility] DentonMean Corpuscular Hemoglobin Concent 2018-10-24 21:16:00* Test Item Value Reference Range Interpretation Comments Mean Corpuscular Hemoglobin Concent (test code = 786-4) 32.7 31-35 [facility] DentonRed Cell Distribution Uulrr3732-29-68 21:16:00* Test Item Value Reference Range Interpretation Comments Red Cell Distribution Width (test code = 12433-3) 14.6 11.7 -14.4 H [facility] DentonPlatelet Bkzdq8064-47-43 21:16:00* Test Item Value Reference Range Interpretation Comments Platelet Count (test code = 777-3) 289 140-360 [facility] DentonNeutrophils (%) (Auto)2018-10-24 21:16:00 * Test Item Value Reference Range Interpretation Comments Neutrophils (%) (Auto) (test code = 89778-1) 62.9 38.7-80.0 [facility] DentonLymphocytes (%) (Auto)2018-10-24 21:16:00 * Test Item Value Reference Range Interpretation Comments Lymphocytes (%) (Auto) (test code = 736-9) 25.7 18.0-39.1 [facility] DentonMonocytes (%) (Auto)2018-10-24 21:16:00* Test Item Value Reference Range Interpretation Comments Monocytes (%) (Auto) (test code = 5905-5) 6.9 4.4-11.3 [facility] DentonEosinophils (%) (Auto)2018-10-24 21:16:00 * Test Item Value Reference Range Interpretation Comments Eosinophils (%) (Auto) (test code = 713-8) 3.0 0.0-6.0 [facility] DentonBasophils (%) (Auto)2018-10-24 21:16:00* Test Item Value Reference Range Interpretation Comments Basophils (%) (Auto) (test code = 706-2) 0.3 0.0-1.0 [facility] DentonIM GRANULOCYTES %2018-10-24 21:16:00* Test Item Value Reference Range Interpretation Comments IM GRANULOCYTES % (test code = IM GRANULOCYTES %) 1.2 0.0- 1.0 H [facility] DentonNeutrophils # (Auto)2018-10-24 21:16:00* Test Item Value Reference Range Interpretation Comments Neutrophils # (Auto) (test code = 751-8) 8.6 2.1-6.9 H [facility] DentonLymphocytes # (Auto)2018-10-24 21:16:00* Test Item Value Reference Range Interpretation Comments Lymphocytes # (Auto) (test code = 42427-7) 3.5 1.0-3.2 H [facility] DentonMonocytes # (Auto)2018-10-24 21:16:00* Test Item Value Reference Range Interpretation Comments Monocytes # (Auto) (test code = 742-7) 1.0 0.2-0.8 H [facility]entonEosinophils # (Auto)2018-10-24 21:16:00* Test Item Value Reference Range Interpretation Comments Eosinophils # (Auto) (test code = 711-2) 0.4 0.0-0.4 [facility] DentonBasophils # (Auto)2018-10-24 21:16:00* Test Item Value Reference Range Interpretation Comments Basophils # (Auto) (test code = 704-7) 0.0 0.0-0.1 [facility] DentonAbsolute Immature Granulocyte (auto 2018-10-24 21:16:00* Test Item Value Reference Range Interpretation Comments Absolute Immature Granulocyte (auto (ronal t code = Absolute Immature Granulocyte (auto) 0.16 0-0.1 H [facility] DentonCT BRAIN [id number] 20:43:00 [facility] [address] [place] [address] Patient Name: THADDEUS KELLER MR #: [id number] : 1975 Age/Sex: 43/F Req #: [id number] Adm Physician: Ordered by: YOHANA YOUNG MD Report #: [id number] Location: ER Room/Bed: Procedure: 35 CT/CT BRAIN WO Exam Date: 10/24/18 Exam Time: 200 0 REPORT STATUS: Signed EXAMINAT ION: Head CT without contrast. HISTORY:Headache, dizziness and left ar m numbness. COMPARISON:None. TECHNIQUE: Multidetector axial images were o btained from the foramen magnum to the vertex without contrast. The images wer e reconstructed using brain and bone algorithms. Thin section brain images we re reformatted into coronal and sagittal planes. Dose modulation, iterative reconstruction, and/or weight based adjustment of the mA/kV was utilized to re duce the radiation dose to as low as reasonably achievable. Intravenous c ontrast: None IMAGE QUALITY: Suboptimal evaluation particularly of skull base and posterior fossa structures due to streak artifacts. FINDINGS: Skull/scalp: No lytic or blastic. lesions. No surgical changes. Paren chyma: No abnormal density. No acute hemorrhage, mass or acute major vascular territorial infarct. Arteries: No density suggestive of thrombosis. Dural sinuses: No abnormal density suggestive of thrombosis. Ventricle s: No hydrocephalus or displacement. Extra-axial spaces: Small posterior f becky, retrocerebellar extra-axial cystic lesion with mild regional mass effect represents an arachnoid cyst. Brain volume: Normal for age. Cranioc ervical junction: No mass, Chiari malformation, or basilar invagination. Sella: No mass. Paranasal/mastoid sinuses: Imaged portions unremarkable. IMPRESSION: No acute intracranial abnormality. Signed by: Dr. Sa heber Shepard M.D. on 10/24/2018 8:48 PM Dictated By: CIRILO SHEPARD MD 47 Transcribed By: David CROWELL on 10/24/182047 COPY TO: YOHANA YOUNG MD CHEST SINGLE (PORTABLE)2018-10-24 20:27:00 [place] [address] Patient Name: THADDEUS KELLER MR #: [id number] : 1975 Age/Sex: 43/F Req #: [id number] Adm Physician: Ordered by: YOHANA YOUNG MD Report #: [id number] Location: ER Room/Bed: Procedure: 71 DX/CHEST SINGLE (PORTABLE) Exam Date: 10/24/18 Ex am Time: 1999 REPORT STATUS: Signed Examination: Single AP view of the chest. COMPARISON: None. INDICA TION: Cough DISCUSSION: Lines/tubes: None. Lungs: The lung s are well inflated and clear. No pneumonia or pulmonary edema. Pleura: No pleural effusion or pneumothorax. Heart and mediastinum: The heart and the mediastinum are unremarkable. Bones and soft tissues: No acute bony abno rmalities. IMPRESSION: 1. No acute cardiopulmonary abnormaliti es. Signed by: Dr. Brandon Miller M.D. on 10/24/2018 8:28 PM Dictated By: BRANDON MILLER MD 27 COPY TO: Alex YOUNG MD
== END 2019-12-21 01:29 | disposition home or self-care (01) ==
LOC: ER 21:33
DX: R10.11 Right upper quadrant pain (principal); R19.09 Other intra-abdominal and pelvic swelling, mass and lump; R94.31 Abnormal electrocardiogram [ECG] [EKG]
CPT/HCPCS: 36415; 74177; 76830; 80053; 81001; 82150; 82550; 82553; 83690; 84484; 84702; 85025; 93005; 99284; C9113; J0500; J2405; Q9967

== ENCOUNTER 2019-12-21 19:15 | Emergency (ER) | payer BC ==
--- OUTSIDE RECORDS SUMMARY | 2019-12-26 18:22 | XMS REPORT | Continuity of Care Document ---
Author Author [facility] t Organization [facility] Address [address] [place] [address] Phone Unavailable Care Team Providers Care Reed Or Wind Instrument Tuner Name Role Phone GERMAN LORENZO PCP Dru YOUNG Attphys Unavailable Tomasa LORENZO MD Attphys Unavailable JEIMY THORNTON Attphylatosha Unavailable Payers Payer Name Policy Type Policy Number Effective Date Expiration Date S omi [employer] [place] [id number] [facility] Problems This patient has no known problems. Allergies, Adverse Reactions, Alerts Allergy Name Allergy Type Status Severity Reaction(s) Onset Date Inacti ve Date Treating Clinician Comments Source No Known Allergies DA Active U 2017-06-06 00:00:00 [facility] Medications This patient has no known medications. Procedures Procedure Date / Time Performed Performing Clinician Sour e Computed tomography of brain without radiopaque contrast 201 10-30-03 00:00:00 YOHANA YOUNG [facility] Encounters Start Date/Time End Date/Time Encounter Type Admission Type Attendi [facility] Care Department Encounter ID Source 2018-10-24 19:42:00 2018-10-24 22:18:00 Departed Emergency Room [address] [facility] [id number] [facility] Results Test Description Test Time Test Comments Results Result Comments Source LACTIC ACID 2019-12-21 23:47:00 Test Item LACTIC ACID (test code = LACT) 0.9 mmol/L 0.4-1.9 N URINALYSIS [id number] 21:05:00* Test Item Value Reference Range Interpretation [...] Clean Catch- CT ABD PELVIS W WO [id number] 21:02:00 [facility]Name: GERONIMO KELLERNICA : 1975 Sex: F Name: ARIANNAGERONIMO BONILLA [facility] : 1975 Age/S : 44 / F [address] Unit #: [id number] Loc: [place] [address] Phys: Aryan Kim PHOTO RETOUCHER Acct: [id number] Dis Date: Status: REG ER PHONE #: [phone] Exam Date: 12/21/20192044 FAX #: [phone] Reason: R IGHT FLANK TO LOWER RIGHT ABD PELVIC PAIN EXAMS: CPT CODE: [id number] CT ABD PELVIS W WO CONT 19227 HISTORY: Right flank pain and lower abdominal [...] 1 Signed Report (CONTINUED) Name: THADDEUS KELLER [facility] : 1975 Age/S: 44 / F [address] Unit #: [id number] Loc: [place] [address] Phy s: Aryan Kim PHOTO RETOUCHER Acct: [id number] Dis Date: Status: REG ER PHONE #: [phone] Exam Date: 12/21/20192044 FAX #: [phone] Reason: RIGHT FLANK TO LOWER RIGHT ABD PELVIC PAIN EXAMS: CPT CODE: [id number] CT ABD PELVIS W WO CONT 63302 <Continued> pelvic pathologic adenopathy. Subcutaneous tissues and [...] (2104) PAGE 2 Signed Report UR HCG [id number] 20:57:00* Test Item Value Reference Range Interpretation Comments UR HCG QUAL (test code = HCGQLU) NEGATIVE This HCGQL test is NOT applicable for MALE patients.Check with nurse about probable order error.If Tumor Marker Test needed, nurse should order test "HCGTU"(Test #550.54026) URINALYSIS [id number] 20:55:00* Test Item Value Reference Range Interpretation [...] HPF NONE Urine Source? Clean CatchBASIC METABOLIC [id number] 20:37:00* Test Item Value Reference Range Interpretation [...] CA) 10.3 mg/dL 8.5-10.1 H HEPATIC FUNCTION [id number] 20:37:00* Test Item Value Reference Range Interpretation [...] reference range due to change in reagent. [id number] 20:37:00* Test Item Value Reference Range Interpretation Comments LIPASE (test code = LIP) 162 U/L 73.0-393.0 N HCG SERUM [id number] 20:37:00* Test Item Value Reference Range Interpretation Comments HCG SERUM QUAL (test code = HCGQL) NEGATIVE NEGATIVE This HCGQL test is NOT applicable for MALE patients.Check with nurse about probable order error.If Tumor Marker Test needed, nurse should order test "HCGTU"(Test #550.94860) [id number] 20:37:00* Test Item Value Reference Range Interpretation Comments TROPONIN-I (test code = TROPI) <0.015 ng/mL 0-0.045 N BASIC METABOLIC [id number] 20:30:00* Test Item Value Reference Range Interpretation [...] code = CA) mg/dL 8.5-10.1 HEPATIC FUNCTION [id number] 20:30:00* Test Item Value Reference Range Interpretation [...] TOTAL (test code = ALKP) IUnit/L 45-117 JBCVRP2243-60-19 20:30:00* Test Item Value Reference Range Interpretation Comments LIPASE (test code = LIP) U/L 73.0-393.0 HCG SERUM [id number] 20:30:00* Test Item Value Reference Range Interpretation Comments HCG SERUM QUAL (test code = HCGQL) NEGATIVE NEGATIVE This HCGQL test is NOT applicable for MALE patients.Check with nurse about probable order error.If Tumor Marker Test needed, nurse should order test "HCGTU"(Test #550.89200) [id number] 20:30:00* Test Item Value Reference Range Interpretation Comments TROPONIN-I (test code = TROPI) ng/mL 0-0.045 CBC W/O [id number] 20:19:00* Test Item Value Reference Range Interpretation [...] = MPV) 11.2 fL 6.7-11.0 H US RRODKRHHRZMO6451-94-00 00:37:00 [facility] : 1975 Sex: F [facility] [address] [place] [address] Patient Name: THADDEUS KELLER MR #: [id number] : 1975 Age/Sex: 44/F Req #: [id number] [facility] Physician: Juju foleyered by: YOHANA YOUNG MD Report #: [id number] Location: ER Room/Bed: Procedure: 8964-8791 US/US TRANSVAGINAL Exam Date: 12/21/19 Exam Time: [...] COPY TO: YOHANA YOUNG MD CT ABDOMEN/PELVIS [id number] 23:00:00 [facility] : 1975 Sex: F [facility] [address] [place] [address] Patient Name: THADDEUS KELLER MR #: [id number] : 1975 Age/Sex: 44/F Req #: [id number] [facility] Physician: Juju cardoza by: YOHANA YOUNG MD Report #: [id number] Location: ER Room/Bed: Procedure: 2516-0903 CT/CT ABDOMEN/PELVIS W Exam Da te: 12/20/19 [...] MD on 12/20/2019 11:10 PM Dictated By: RADHA ROSA MD 09 [place] scribed By: ELISA on 12/20/192309 COPY TO: YOHANA YOUNG MD US ABDOMEN [id number] 11:05:00 [facility] : 1975 Sex: F [facility] [address] [place] [address] Patient Name: THADDEUS KELLER MR #: [id number] : 1975 Age/Sex: 44/F Req #: [id number] Adm Physician: Juju foleyered by: MAURA BANUELOS, GERMAN Randolph MD Report #: [id number] Location: US Room/Bed: Procedure: 1932-5648 US/US ABDOMEN COMPLETE Exam Jean Marie e: [...] COPY TO: GERMAN LORENZO FOOT LEFT AP [id number] 09:06:00 [place] [address] Patient Name: THADDEUS KELLER MR #: [id number] : 1975 Age/Sex: 43/F Req #: [id number] Adm Physician: Ordered by: JEIMY THORNTON DPAlex Report #: [id number] Location: OR Room/Bed: Procedure: [id number] DX/VIC T LEFT AP LAT Exam Date: [...] on 01/03/2019 9:0 7 AM Dictated By: VICETNE GARCIA MD 6 Transcribed By: ELISA on 01/03/19906 COPY TO: JEIMY THORNTON DPM CHEST 2 [id number] 10:10:00 [facility] [address] [place] [address] Patient Name: THADDEUS KELLER MR #: [id number] : 1975 Age/Sex: 43/F Req #: [id number] Adm Physician: Ordered by: JEIMY THORNTON DPM Report #: [id number] Location: OR Room/Bed: Procedure: [id number] DX/HANSEL ST 2 VIEWS Exam Date: 12/28/18 [...] MD 10 COPY TO: JEIMY THORNTON Sodium Sssgu1279-03-45 21:36:00* Test Item Value Reference Range Interpretation Comments Sodium Level (test code = 2951-2) 135 136-145 L [facility] ClinicsPotassium Avssv2615-65-65 21:36:00* Test Item Value Reference Range Interpretation Comments Potassium Level (test code = 2823-3) 4.0 3.5-5.1 [facility] ClinicsChloride Ffwqp6180-86-79 21:36:00* Test Item Value Reference Range Interpretation Comments Chloride Level (test code = 2075-0) 100 98-107 [facility] ClinicsCarbon Dioxide Ytawy5019-74-29 21:36:00* Test Item Value Reference Range Interpretation Comments Carbon Dioxide Level (test code = 2028-9) 25 22-29 [facility] ClinicsAnion Dep1634-64-12 21:36:00* Test Item Value Reference Range Interpretation Comments Anion Gap (test code = 33526-8) 14.0 8-16 [facility] ClinicsBlood Urea Fcdfgvff3679-69-67 21:36:00* Test Item Value Reference Range Interpretation Comments Blood Urea Nitrogen (test code = 3094-0) 14 7-26 [facility] ClinicsCreatinine2019-09-04 21:36:00* Test Item Value Reference Range Interpretation Comments Creatinine (test code = 2160-0) 0.86 0.57-1.11 [facility] ClinicsBUN/Creatinine Tlsul5164-02-71 21:36:00* Test Item Value Reference Range Interpretation Comments BUN/Creatinine Ratio (test code = 3097-3) 16 6-25 [facility] ClinicsEstimat Glomerular Filtration Rate 2018-10-24 21:36:00* Test Item Value Reference Range Interpretation Comments Estimat Glomerular Filtration Rate (test code = 536995479) > 60 >60 Ranges were taken from the National Kidney Disease Education Program and the [facility] literature.Reference ranges:60 or greater: Gbxlmr57-43 ( for 3 consecutive months): Chronic kidney disease 15 or less: Kidney failureEast Houston Hospital and ClinicsGlucose Ruubr1420-73-91 21:36:00* Test Item Value Reference Range Interpretation Comments Glucose Level (test code = JWG8177) 101 74-118 [facility] ClinicsCalcium Gnmyr5199-34-05 21:36:00* Test Item Value Reference Range Interpretation Comments Calcium Level (test code = 99539-2) 10.3 8.4-10.2 H [facility] ClinicsTotal Eniymdcqx0725-25-50 21:36:00* Test Item Value Reference Range Interpretation Comments Total Bilirubin (test code = 1975-2) 0.3 0.2-1.2 [facility] ClinicsAspartate Amino Transf (AST/SGOT) 2018-10-24 21:36:00* Test Item Value Reference Range Interpretation Comments Aspartate Amino Transf (AST/SGOT) (test code = Aspartate Amino Transf (AST/SGOT)) 40 5-34 H [facility] ClinicsAlanine Aminotransferase (ALT/SGPT) 2018-10-24 21:36:00* Test Item Value Reference Range Interpretation Comments Alanine Aminotransferase (ALT/SGPT) (test code = 1742-6) 55 0-55 [facility] ClinicsTotal Eosjtap7354-56-43 21:36:00* Test Item Value Reference Range Interpretation Comments Total Protein (test code = 2885-2) 7.3 6.5-8.1 [facility] ClinicsAlbumin2019-09-04 21:36:00* Test Item Value Reference Range Interpretation Comments Albumin (test code = 1751-7) 3.7 3.5-5.0 [facility] ClinicsGlobulin2019-09-04 21:36:00* Test Item Value Reference Range Interpretation Comments Globulin (test code = 63689-5) 3.6 2.3-3.5 H [facility] ClinicsAlbumin/Globulin Zngmd0852-22-12 21:36:00 * Test Item Value Reference Range Interpretation Comments Albumin/Globulin Ratio (test code = 1759-0) 1.0 0.8-2.0 [facility] ClinicsAlkaline Ihtpkqhwtop7850-25-67 21:36:00* Test Item Value Reference Range Interpretation Comments Alkaline Phosphatase (test code = 6768-6) 75 40-150 [facility] ClinicsCreatine Ookhio5846-29-22 21:36:00* Test Item Value Reference Range Interpretation Comments Creatine Kinase (test code = 2157-6) 49 29-168 [facility] ClinicsCreatine Kinase HB2785-90-41 21:36:00* Test Item Value Reference Range Interpretation Comments Creatine Kinase MB (test code = 26828-7) 0.50 0-5.0 [facility] ClinicsTroponin K6977-81-29 21:36:00* Test Item Value Reference Range Interpretation Comments Troponin I (test code = BEP7745) < 0.001 0-0.300 [facility] ClinicsWhite Blood Oijjh3099-28-20 21:16:00* Test Item Value Reference Range Interpretation Comments White Blood Count (test code = 6690-2) 13.70 4.8-10.8 H [facility] ClinicsRed Blood Vdild6668-10-03 21:16:00* Test Item Value Reference Range Interpretation Comments Red Blood Count (test code = 789-8) 4.55 3.6-5.1 [facility] ClinicsHemoglobin2019-09-04 21:16:00* Test Item Value Reference Range Interpretation Comments Hemoglobin (test code = 27530-8) 13.0 12.0-16.0 [facility] ClinicsHematocrit2019-09-04 21:16:00* Test Item Value Reference Range Interpretation Comments Hematocrit (test code = 4544-3) 39.8 34.2-44.1 [facility] ClinicsMean Corpuscular Wwhrqx7354-78-51 21:16:00* Test Item Value Reference Range Interpretation Comments Mean Corpuscular Volume (test code = 787-2) 87.5 81-99 [facility] ClinicsMean Corpuscular Hnulxjvwsa4773-88-36 21:16:00* Test Item Value Reference Range Interpretation Comments Mean Corpuscular Hemoglobin (test code = 785-6) 28.6 28-32 [facility] ClinicsMean Corpuscular Hemoglobin Concent 2018-10-24 21:16:00* Test Item Value Reference Range Interpretation Comments Mean Corpuscular Hemoglobin Concent (test code = 786-4) 32.7 31-35 [facility] ClinicsRed Cell Distribution Mgdfh9192-57-08 21:16:00* Test Item Value Reference Range Interpretation Comments Red Cell Distribution Width (test code = 18805-3) 14.6 11.7 -14.4 H [facility] ClinicsPlatelet Kiscc9349-91-06 21:16:00* Test Item Value Reference Range Interpretation Comments Platelet Count (test code = 777-3) 289 140-360 [facility] ClinicsNeutrophils (%) (Auto)2018-10-24 21:16:00 * Test Item Value Reference Range Interpretation Comments Neutrophils (%) (Auto) (test code = 79304-0) 62.9 38.7-80.0 [facility] ClinicsLymphocytes (%) (Auto)2018-10-24 21:16:00 * Test Item Value Reference Range Interpretation Comments Lymphocytes (%) (Auto) (test code = 736-9) 25.7 18.0-39.1 [facility] ClinicsMonocytes (%) (Auto)2018-10-24 21:16:00* Test Item Value Reference Range Interpretation Comments Monocytes (%) (Auto) (test code = 5905-5) 6.9 4.4-11.3 [facility] ClinicsEosinophils (%) (Auto)2018-10-24 21:16:00 * Test Item Value Reference Range Interpretation Comments Eosinophils (%) (Auto) (test code = 713-8) 3.0 0.0-6.0 [facility] ClinicsBasophils (%) (Auto)2018-10-24 21:16:00* Test Item Value Reference Range Interpretation Comments Basophils (%) (Auto) (test code = 706-2) 0.3 0.0-1.0 [facility] ClinicsIM GRANULOCYTES %2018-10-24 21:16:00* Test Item Value Reference Range Interpretation Comments IM GRANULOCYTES % (test code = IM GRANULOCYTES %) 1.2 0.0- 1.0 H [facility] ClinicsNeutrophils # (Auto)2018-10-24 21:16:00* Test Item Value Reference Range Interpretation Comments Neutrophils # (Auto) (test code = 751-8) 8.6 2.1-6.9 H [facility] ClinicsLymphocytes # (Auto)2018-10-24 21:16:00* Test Item Value Reference Range Interpretation Comments Lymphocytes # (Auto) (test code = 01266-0) 3.5 1.0-3.2 H [facility] ClinicsMonocytes # (Auto)2018-10-24 21:16:00* Test Item Value Reference Range Interpretation Comments Monocytes # (Auto) (test code = 742-7) 1.0 0.2-0.8 H [facility] ClinicsEosinophils # (Auto)2018-10-24 21:16:00* Test Item Value Reference Range Interpretation Comments Eosinophils # (Auto) (test code = 711-2) 0.4 0.0-0.4 [facility] ClinicsBasophils # (Auto)2018-10-24 21:16:00* Test Item Value Reference Range Interpretation Comments Basophils # (Auto) (test code = 704-7) 0.0 0.0-0.1 [facility] ClinicsAbsolute Immature Granulocyte (auto 2018-10-24 21:16:00* Test Item Value Reference Range Interpretation Comments Absolute Immature Granulocyte (auto (ronal t code = Absolute Immature Granulocyte (auto) 0.16 0-0.1 H [facility] ClinicsCT BRAIN [id number] 20:43:00 [facility] [address] [place] [address] Patient Name: THADDEUS KELLER MR #: [id number] : 1975 Age/Sex: 43/F Req #: [id number] Adm Physician: Ordered by: YOHANA YOUNG MD Report #: [id number] Location: ER Room/Bed: Procedure: 35 CT/CT BRAIN [...] YOHANA YOUNG MD CHEST SINGLE (PORTABLE)2018-10-24 20:27:00 [place] [address] Patient Name: THADDEUS KELLER MR #: [id number] : 1975 Age/Sex: 43/F Req #: [id number] Adm Physician: Ordered by: YOHANA YOUNG MD Report #: [id number] Location: ER Room/Bed: Procedure: 71 DX/CHEST SINGLE [...]
== END 2019-12-21 19:35 | disposition short-term general hospital (02) ==
LOC: ER 19:32
DX: R10.9 Unspecified abdominal pain (principal)

== ENCOUNTER 2020-07-17 17:28 | Observation (INO) | payer OTHER ==
[~2020-07-17] VITALS: Ht 162.6 cm; Wt 87.1 kg
[~2020-07-17 17:28] MED LIST changes: -ATORVASTATIN CA20 MG PO; -BUPROPION XL150 MG PO; -CEFTRIAXONE SOD 2 GM 100 ML IV SCH; +DEXAMETHASONE SOD PHOS INJ 4 MG/ML VIAL ONE; -DEXTROSE 5%/LACTATED RINGERS 1,000 ML IV SCH; +EPHEDRINE SULFATE INJ 50 MG/ML VIAL ONE; +FENTANYL CITRATE/PF 100MCG/2 ML INJ ONE; -HYDROCODONE/APAP 7.5MG-325MG 1 EA TAB PO PRN; -HYDROMORPHONE 1MG/1ML INJ IV PRN; +LIDOCAINE HCL 2% JELLY 5 ML TUBE ONE; +LIDOCAINE HCL 2% LOCAL INJ 5 ML SDV VIAL INJ ONE; -ONDANSETRON HCL INJ 2MG/ML 2ML 2 MG/ML VIAL IV PRN; +POVIDONE IODINE 0.05% 0.05 % ML PO ONE; +PROPOFOL IV EMULSION 10 MG/ML 20 ML VIAL ONE; +ROCURONIUM BROMIDE 10 MG/ML 5ML VIAL IV ONE; -SERTRALINE HCL50 MG PO; +SEVOFLURANE INHAL SOLN 250 ML PEN BTL ONE; -SUGAMMADEX SODIUM 200 MG/2 ML VIAL IV ONE; -TYLENOL # 31 EA PO
[2020-07-17] MEDS ORDERED: PIPERACILLIN/TAZOBAC 3.375 GM in SODIUM CHLORIDE 0.9% 50ML 50 ML IV SCH (17:45)
[2020-07-17 18:10] LABS: BASOPHILS % 0.3 % (0.0-1.0); EOSINOPHILS # (AUTO) 0.3 (0.0-0.4); HEMATOCRIT 39.1 % (34.2-44.1); HEMOGLOBIN 12.5 g/dL (12.0-16.0); LYMPHOCYTES # (AUTO) 2.5 (1.0-3.2); LYMPHOCYTES % 19.5 % (18.0-39.1); MEAN CORPUSCULAR HEMOGLOBIN 28.5 pg (28-32); MEAN CORPUSCULAR VOLUME 89.3 fL (81-99); MONOCYTES # (AUTO) 0.9 (0.2-0.8); MONOCYTES % 7.1 % (4.4-11.3); NEUTROPHILS # (AUTO) 8.9 (2.1-6.9); NEUTROPHILS % 70.7 % (38.7-80.0); PLATELET COUNT 264 x10e3/uL (140-360); RED BLOOD COUNT 4.38 x10e6/uL (3.6-5.1); RED CELL DISTRIBUTION WIDTH 13.6 % (11.7-14.4)
[2020-07-17] MEDS ORDERED: LACTATED RINGER'S 1,000 ML INJ SCH ×2 (18:15→21:45)
[2020-07-17] MEDS ORDERED: MORPHINE SULFATE INJ 2 MG/ML SYR IV PRN (18:15)
[2020-07-17] MEDS ORDERED: SODIUM CHLORIDE 0.9% 1000ML 1,000 ML IV SCH (18:15)
[2020-07-17] MEDS ORDERED: ONDANSETRON HCL INJ 2MG/ML 2ML 2 MG/ML VIAL IV PRN (18:15)
[2020-07-17] MEDS ORDERED: MORPHINE SULFATE INJ 4 MG/ML INJ 1ML IV PRN (18:15)
[2020-07-17 18:36] LABS: ALANINE AMINOTRANSFERASE 14 IU/L (0-55); ALBUMIN/GLOBULIN RATIO 1.3 (0.8-2.0); ALKALINE PHOSPHATASE 92 IU/L (40-150); ANION GAP 12.2 mmol/L (8-16); BLOOD UREA NITROGEN 11 mg/dL (7-26); BUN/CREATININE RATIO 15 (6-25); CALCIUM 9.4 mg/dL (8.4-10.2); CARBON DIOXIDE 29 mmol/L (22-29); CHLORIDE 103 mmol/L (98-107); CREATININE, SERUM 0.71 mg/dL (0.57-1.11); EST GLOMERULAR FILTRATION RATE > 60 ML/MIN (60-); GLUCOSE 83 mg/dL (74-118); POTASSIUM 4.2 mmol/L (3.5-5.1); SODIUM 140 mmol/L (136-145)
[2020-07-17] MEDS ORDERED: BUPIVACAINE 0.5%/EPI 30 ML SDV INJ ONE (18:46)
[2020-07-17] MEDS ORDERED: HYDROGEN PEROXIDE 120 ML BTL ONE (20:17)
[2020-07-17] MEDS ORDERED: MEPERIDINE HCL INJ 25 MG/ML VIAL ONE (20:39)
[2020-07-17 21:00] VITALS: BP 111/59
[2020-07-17] MEDS ORDERED: ACETAMINOPHEN 325 MG TAB PO PRN (21:00)
[2020-07-17] MEDS ORDERED: HYDRALAZINE HCL 20 MG/ML VIAL IV PRN (21:00)
[2020-07-17] MEDS ORDERED: ATORVASTATIN CA20 MG PO (22:16)
[2020-07-17] MEDS ORDERED: BUPROPION XL150 MG PO (22:16)
[2020-07-17] MEDS ORDERED: SERTRALINE HCL50 MG PO (22:16)
[2020-07-17 22:20] VITALS: BP_SYST 111; BP_SYST 125; BP_DIAS 59; BP_DIAS 79
[2020-07-17] MEDS ORDERED: HYDROCODONE/APAP 7.5MG-325MG 1 EA TAB PO PRN (22:45)
[2020-07-17] MEDS: ONDANSETRON HCL INJ 2MG/ML 2ML 2 MG/ML VIAL IV PRN (23:10)
[2020-07-17] MEDS: HYDROMORPHONE 1MG/1ML INJ IV PRN (23:10)
[2020-07-17] MEDS: DEXTROSE 5%/LACTATED RINGERS 1,000 ML IV SCH (23:10)
[2020-07-17] MEDS ORDERED: CEFTRIAXONE SOD 2 GM in SODIUM CHLORIDE 0.9% 100 ML IV SCH (23:40)
[2020-07-18] VITALS: BP 118/62
[2020-07-18] MEDS ORDERED: SODIUM CHLORIDE 0.9% 50ML 50 ML ONE (00:19)
[2020-07-18 04:00] VITALS: BP 100/56
[2020-07-18 04:59] LABS: BASOPHILS % 0.1 % (0.0-1.0); EOSINOPHILS % 0.1 % (0.0-6.0); HEMATOCRIT 36.7 % (34.2-44.1); HEMOGLOBIN 11.7 g/dL (12.0-16.0); LYMPHOCYTES % 6.8 % (18.0-39.1); MEAN CORPUSCULAR HEMOGLOBIN 28.6 pg (28-32); MEAN CORPUSCULAR HGB CONC 31.9 g/dL (31-35); MEAN CORPUSCULAR VOLUME 89.7 fL (81-99); MONOCYTES # (AUTO) 0.2 (0.2-0.8); MONOCYTES % 1.6 % (4.4-11.3); NEUTROPHILS # (AUTO) 12.9 (2.1-6.9); PLATELET COUNT 222 x10e3/uL (140-360); RED BLOOD COUNT 4.09 x10e6/uL (3.6-5.1); RED CELL DISTRIBUTION WIDTH 13.5 % (11.7-14.4)
[2020-07-18 05:25] LABS: ALANINE AMINOTRANSFERASE 14 IU/L (0-55); ALBUMIN 3.5 g/dL (3.5-5.0); ALBUMIN/GLOBULIN RATIO 1.1 (0.8-2.0); ALKALINE PHOSPHATASE 69 IU/L (40-150); ANION GAP 13.6 mmol/L (8-16); BLOOD UREA NITROGEN 8 mg/dL (7-26); BUN/CREATININE RATIO 11 (6-25); CALCIUM 9.2 mg/dL (8.4-10.2); CARBON DIOXIDE 24 mmol/L (22-29); CHLORIDE 103 mmol/L (98-107); EST GLOMERULAR FILTRATION RATE > 60 ML/MIN (60-); GLUCOSE 181 mg/dL (74-118); POTASSIUM 4.6 mmol/L (3.5-5.1); SODIUM 136 mmol/L (136-145)
[2020-07-18] MEDS: DEXTROSE 5%/LACTATED RINGERS 1,000 ML IV SCH (07:50)
[2020-07-18] MEDS: HYDROMORPHONE 1MG/1ML INJ IV PRN (07:50)
[2020-07-18] MEDS: ONDANSETRON HCL INJ 2MG/ML 2ML 2 MG/ML VIAL IV PRN (07:50)
[2020-07-18 08:09] VITALS: BP 112/60
[2020-07-18 08:14] VITALS: BP 112/60
[2020-07-18] MEDS ORDERED: TYLENOL # 31 EA PO (10:37)
[2020-07-18 12:35] VITALS: BP 111/58
[2020-07-18 16:48] VITALS: BP 118/59
[2020-07-18] MEDS ORDERED: CEFTRIAXONE SOD 2 GM in SODIUM CHLORIDE 0.9% 100 ML IV SCH (22:42)
== END 2020-07-18 16:38 | disposition home or self-care (01) ==
LOC: ER 17:33 → ERHOLD 18:19 → INTOOBSV 18:19 → MED/SURG 21:09
PROVIDERS: ADMIT Internal Medicine; ATTEND Internal Medicine
DX: K35.80 Unspecified acute appendicitis (principal); I10 Essential (primary) hypertension; E78.5 Hyperlipidemia, unspecified; F41.9 Anxiety disorder, unspecified; Z82.49 Family history of ischemic heart disease and other diseases of the circulatory system; Z83.3 Family history of diabetes mellitus; Z84.89 Family history of other specified conditions; Z20.822 Contact with and (suspected) exposure to COVID-19; Z98.84 Bariatric surgery status
CPT/HCPCS: 36415 ×2; 44970; 80053 ×2; 85025 ×2; 87040; 88304; 93005; 99284; G0378 ×2; J0696; J1100; J1170 ×2; J2001 ×2; J2175; J2270; J2405 ×2; J2543; J2704; J3010; J7050; J7121 ×3; U0002

== ENCOUNTER → 2020-07-17 | Outpatient (CLI) | payer OTHER ==
[~2020-07-17] MED LIST changes: +ATORVASTATIN CA20 MG PO; +BUPROPION XL150 MG PO; +CEFTRIAXONE SOD 2 GM 100 ML IV SCH; +DEXTROSE 5%/LACTATED RINGERS 1,000 ML IV SCH; +HYDROCODONE/APAP 7.5MG-325MG 1 EA TAB PO PRN; +HYDROMORPHONE 1MG/1ML INJ IV PRN; +ONDANSETRON HCL INJ 2MG/ML 2ML 2 MG/ML VIAL IV PRN; +SERTRALINE HCL50 MG PO; +SUGAMMADEX SODIUM 200 MG/2 ML VIAL IV ONE; +TYLENOL # 31 EA PO
== END ==
LOC: CT 16:18
PROVIDERS: ATTEND Family Medicine
DX: N23 Unspecified renal colic (principal)
CPT/HCPCS: 74176

== ENCOUNTER → 2021-02-03 | Outpatient (CLI) | payer OTHER ==
[~2021-02-03] MED LIST changes: +ATORVASTATIN CA20 MG PO; +BUPROPION XL150 MG PO; -DEXAMETHASONE SOD PHOS INJ 4 MG/ML VIAL ONE; -EPHEDRINE SULFATE INJ 50 MG/ML VIAL ONE; -FENTANYL CITRATE/PF 100MCG/2 ML INJ ONE; -LIDOCAINE HCL 2% JELLY 5 ML TUBE ONE; -LIDOCAINE HCL 2% LOCAL INJ 5 ML SDV VIAL INJ ONE; -POVIDONE IODINE 0.05% 0.05 % ML PO ONE; -PROPOFOL IV EMULSION 10 MG/ML 20 ML VIAL ONE; -ROCURONIUM BROMIDE 10 MG/ML 5ML VIAL IV ONE; +SERTRALINE HCL50 MG PO; -SEVOFLURANE INHAL SOLN 250 ML PEN BTL ONE; +TYLENOL # 31 EA PO
== END ==
LOC: RAD 08:44
PROVIDERS: ATTEND Family Medicine
DX: R05.3 Chronic cough (principal)
CPT/HCPCS: 71046

== ENCOUNTER → 2021-04-21 | Outpatient (CLI) | payer OTHER | LOC: RAD 08:56 | PROVIDERS: ATTEND Family Medicine | DX: R05.3 Chronic cough (principal) | CPT/HCPCS: 71046 ==

== ENCOUNTER → 2021-12-24 | Outpatient (CLI) | payer OTHER | LOC: RAD 12:33 | PROVIDERS: ATTEND Family Medicine | DX: R05.3 Chronic cough (principal) | CPT/HCPCS: 71046 ==

== ENCOUNTER 2022-06-06 18:20 | Emergency (ER) | payer OTHER ==
[~2022-06-06] VITALS: Ht 162.6 cm; Wt 87.1 kg
[2022-06-06] MEDS ORDERED: Morphine 4mg INJECTION 4 MG/ML INJ IV STA (18:51)
[2022-06-06] MEDS ORDERED: ONDANSETRON HCL INJ 2MG/ML 2ML 2 MG/ML VIAL IV STA (18:51)
[2022-06-06] MEDS ORDERED: SODIUM CHLORIDE 0.9% 1000ML 1,000 ML IV STA (18:51)
[2022-06-06] MEDS ORDERED: CEFTRIAXONE 1 GM VIAL ONE (18:53)
[2022-06-06] MEDS ORDERED: IBUPROFEN 400 MG TAB ONE (18:53)
[2022-06-06] MEDS ORDERED: ACETAMINOPHEN 325 MG TAB ONE (18:53)
[2022-06-06] MEDS ORDERED: ACETAMINOPHEN 325 MG TAB PO STA (18:54)
[2022-06-06] MEDS ORDERED: IBUPROFEN 400 MG TAB PO ONE (19:15)
[2022-06-06 19:28] LABS: BASOPHILS % 0.1 % (0.0-1.0); HEMATOCRIT 36.3 % (34.2-44.1); HEMOGLOBIN 11.8 g/dL (12.0-16.0); LYMPHOCYTES # (AUTO) 0.8 (1.0-3.2); LYMPHOCYTES % 5.5 % (18.0-39.1); MEAN CORPUSCULAR HEMOGLOBIN 27.3 pg (28-32); MEAN CORPUSCULAR HGB CONC 32.5 g/dL (31-35); MEAN CORPUSCULAR VOLUME 83.8 fL (81-99); MONOCYTES % 6.7 % (4.4-11.3); NEUTROPHILS # (AUTO) 12.3 (2.1-6.9); NEUTROPHILS % 87.1 % (38.7-80.0); PLATELET COUNT 202 x10e3/uL (140-360); RED BLOOD COUNT 4.33 x10e6/uL (3.6-5.1); RED CELL DISTRIBUTION WIDTH 15.2 % (11.7-14.4)
[2022-06-06 19:40] LABS: ALBUMIN 3.5 g/dL (3.5-5.0); ALBUMIN/GLOBULIN RATIO 0.9 (0.8-2.0); ANION GAP 14.9 mmol/L (8-16); CALCIUM 9.6 mg/dL (8.4-10.2); CREATININE, SERUM 1.1 mg/dL (0.57-1.11); POTASSIUM 3.9 mmol/L (3.5-5.1)
[2022-06-06] MEDS ORDERED: IOPAMIDOL 370 MG/ML 100 ML INFUS..BTL INJ ONE (20:08)
[2022-06-06 20:19] LABS: CLARITY,URINE SL CLOUDY (CLEAR); COLOR,URINE YELLOW (YELLOW)
[2022-06-06 20:20] LABS: KETONES,URINE 2+ (NEGATIVE); LEUKOCYTE ESTERASE ,URINE SMALL (NEGATIVE); NITRITE,URINE POSITIVE (NEGATIVE); PROTEIN,URINE DIPSTICK 2+ (NEGATIVE); URINE UROBILINOGEN 0.2 mg/dL (0.2 - 1)
[2022-06-06 20:23] LABS: WBC,URINE (MAN) >50 /HPF (0-5)
[2022-06-06 20:24] LABS: BACTERIA,URINE MANY /HPF; EPITHELIAL CELLS,URINE FEW /LPF
[2022-06-06] MEDS ORDERED: ACETAMINOPHEN-1 EAC4 PO (21:15)
[2022-06-06] MEDS ORDERED: ONDANSETRON ODT4 MG PO (21:15)
[2022-06-06] MEDS ORDERED: CIPRO500 MG PO (21:15)
[2022-06-07] MEDS ORDERED: AMLODIPINE BESY10 MG PO (23:19)
[2022-06-07] MEDS ORDERED: LANSOPRAZOLE30 MG (23:19)
== END 2022-06-06 21:20 | disposition home or self-care (01) ==
LOC: ER 18:23
DX: R10.31 Right lower quadrant pain (principal); N12 Tubulo-interstitial nephritis, not specified as acute or chronic; R73.9 Hyperglycemia, unspecified; I10 Essential (primary) hypertension; E78.5 Hyperlipidemia, unspecified; F41.9 Anxiety disorder, unspecified; F32.A Depression, unspecified; Z20.822 Contact with and (suspected) exposure to COVID-19
CPT/HCPCS: 36415; 74177; 80053; 81001; 83605; 83690; 85025; 87040; 99284; J0696; J2405; J2543; Q9967; U0002

== ENCOUNTER 2022-06-07 17:08 | Inpatient (IN) | payer OTHER ==
[~2022-06-07] VITALS: Ht 162.6 cm; Wt 93.6 kg
[~2022-06-07 17:08] MED LIST changes: +ACETAMINOPHEN-1 EAC4 PO; +CIPRO500 MG PO; +ONDANSETRON ODT4 MG PO
[2022-06-07] MEDS ORDERED: SODIUM CHLORIDE 0.9% 1000ML 1,000 ML IV STA (17:59)
[2022-06-07] MEDS ORDERED: KETOROLAC TROMETHAMINE 30 MG/ML VIAL IV STA (19:19)
[2022-06-07] MEDS ORDERED: ONDANSETRON HCL INJ 2MG/ML 2ML 2 MG/ML VIAL ONE (19:20)
[2022-06-07] MEDS ORDERED: Morphine 4mg INJECTION 4 MG/ML INJ ONE (19:20)
[2022-06-07] MEDS ORDERED: ONDANSETRON HCL INJ 2MG/ML 2ML 2 MG/ML VIAL IV STA (19:24)
[2022-06-07] MEDS ORDERED: Morphine 4mg INJECTION 4 MG/ML INJ IV ONE (19:30)
[2022-06-07 19:38] LABS: BASOPHILS % 0.1 % (0.0-1.0); EOSINOPHILS % 0.2 % (0.0-6.0); HEMATOCRIT 35.1 % (34.2-44.1); HEMOGLOBIN 11.2 g/dL (12.0-16.0); LYMPHOCYTES # (AUTO) 1.2 (1.0-3.2); LYMPHOCYTES % 6.7 % (18.0-39.1); MEAN CORPUSCULAR HGB CONC 31.9 g/dL (31-35); MEAN CORPUSCULAR VOLUME 84.6 fL (81-99); MONOCYTES # (AUTO) 1.5 (0.2-0.8); MONOCYTES % 8.8 % (4.4-11.3); NEUTROPHILS # (AUTO) 14.4 (2.1-6.9); NEUTROPHILS % 83.7 % (38.7-80.0); PLATELET COUNT 197 x10e3/uL (140-360); RED BLOOD COUNT 4.15 x10e6/uL (3.6-5.1); RED CELL DISTRIBUTION WIDTH 15.4 % (11.7-14.4)
[2022-06-07 19:54] LABS: ALBUMIN 3.2 g/dL (3.5-5.0); ALBUMIN/GLOBULIN RATIO 0.7 (0.8-2.0); CALCIUM 9.2 mg/dL (8.4-10.2); CREATININE, SERUM 1.33 mg/dL (0.57-1.11)
[2022-06-07 21:12] LABS: CLARITY,URINE SL CLOUDY (CLEAR); COLOR,URINE YELLOW (YELLOW); KETONES,URINE NEGATIVE (NEGATIVE); LEUKOCYTE ESTERASE ,URINE TRACE (NEGATIVE); NITRITE,URINE NEGATIVE (NEGATIVE); PROTEIN,URINE DIPSTICK 2+ (NEGATIVE); URINE UROBILINOGEN 0.2 mg/dL (0.2 - 1)
[2022-06-07 21:25] LABS: AMORPHOUS SEDIMENT,URINE MODERATE (FEW); BACTERIA,URINE FEW /HPF; EPITHELIAL CELLS,URINE MODERATE /LPF
[2022-06-07] MEDS ORDERED: ACETAMINOPHEN 325 MG TAB PO STA (21:33)
[2022-06-07] MEDS: SODIUM CHLORIDE 0.9% 1000ML 1,000 ML IV SCH (22:00)
[2022-06-07 22:35] VITALS: BP 101/55
[2022-06-07 23:08] VITALS: BP 116/65
[2022-06-07] MEDS ORDERED: AMLODIPINE BESY10 MG PO (23:19)
[2022-06-07] MEDS ORDERED: LANSOPRAZOLE30 MG (23:19)
[2022-06-08] VITALS (9 sets, daily range): BP systolic 89–125; BP diastolic 49–72
[2022-06-08] MEDS: SODIUM CHLORIDE 0.9% 1000ML 1,000 ML IV SCH ×3 (00:25→20:28)
[2022-06-08] MEDS: Morphine 4mg INJECTION 4 MG/ML INJ IV PRN (06:05)
[2022-06-08 06:06] LABS: BASOPHILS # (AUTO) 0.1 (0.0-0.1); BASOPHILS % 0.5 % (0.0-1.0); EOSINOPHILS # (AUTO) 0.1 (0.0-0.4); EOSINOPHILS % 0.4 % (0.0-6.0); HEMATOCRIT 29.5 % (34.2-44.1); LYMPHOCYTES # (AUTO) 1.7 (1.0-3.2); LYMPHOCYTES % 13.4 % (18.0-39.1); MEAN CORPUSCULAR HEMOGLOBIN 26.6 pg (28-32); MEAN CORPUSCULAR HGB CONC 30.5 g/dL (31-35); MEAN CORPUSCULAR VOLUME 87.3 fL (81-99); MONOCYTES # (AUTO) 1.5 (0.2-0.8); MONOCYTES % 11.8 % (4.4-11.3); NEUTROPHILS # (AUTO) 9.5 (2.1-6.9); NEUTROPHILS % 73.1 % (38.7-80.0); PLATELET COUNT 161 x10e3/uL (140-360); RED BLOOD COUNT 3.38 x10e6/uL (3.6-5.1); RED CELL DISTRIBUTION WIDTH 15.3 % (11.7-14.4)
[2022-06-08 07:01] LABS: ALBUMIN 2.4 g/dL (3.5-5.0); ALBUMIN/GLOBULIN RATIO 0.7 (0.8-2.0); ANION GAP 13.4 mmol/L (8-16); CALCIUM 7.9 mg/dL (8.4-10.2); CREATININE, SERUM 1.35 mg/dL (0.57-1.11); POTASSIUM 3.4 mmol/L (3.5-5.1)
[2022-06-08 08:00] LABS: BAND NEUTROPHILS % (MANUAL) 1 %; LYMPHOCYTES % (MANUAL) 19 % (19-48); MONOCYTES % (MANUAL) 5 % (3.4-9.0); NEUTROPHILS % (MANUAL) 74 % (40-74); PLATELET ESTIMATE ADEQUATE; PLATELET MORPHOLOGY COMMENT NORMAL; RBC MORPHOLOGY COMMENT NORMAL
[2022-06-08] MEDS ORDERED: ACETAMINOPHEN/CODEINE 300MG - 30MG TAB PO PRN (11:00)
[2022-06-08] MEDS ORDERED: HYDRALAZINE HCL 20 MG/ML VIAL IV PRN (12:15)
[2022-06-08] MEDS ORDERED: POTASSIUM CHLORIDE 10MEQ/100ML 100 ML IV ONE (13:00)
[2022-06-08] MEDS: ATORVASTATIN 40 MG TAB PO SCH (20:28)
[2022-06-09] VITALS (9 sets, daily range): BP systolic 108–132; BP diastolic 68–87
[2022-06-09] MEDS: SODIUM CHLORIDE 0.9% 1000ML 1,000 ML IV SCH ×2 (05:28→12:50)
[2022-06-09 06:49] LABS: BASOPHILS % 0.6 % (0.0-1.0); EOSINOPHILS # (AUTO) 0.1 (0.0-0.4); EOSINOPHILS % 0.8 % (0.0-6.0); HEMATOCRIT 32.3 % (34.2-44.1); LYMPHOCYTES # (AUTO) 1.5 (1.0-3.2); LYMPHOCYTES % 22.1 % (18.0-39.1); MEAN CORPUSCULAR HEMOGLOBIN 27.3 pg (28-32); MEAN CORPUSCULAR VOLUME 88.3 fL (81-99); MONOCYTES # (AUTO) 0.7 (0.2-0.8); MONOCYTES % 10.7 % (4.4-11.3); NEUTROPHILS # (AUTO) 4.3 (2.1-6.9); PLATELET COUNT 151 x10e3/uL (140-360); RED BLOOD COUNT 3.66 x10e6/uL (3.6-5.1); RED CELL DISTRIBUTION WIDTH 15.5 % (11.7-14.4)
[2022-06-09 07:19] LABS: ANION GAP 11.6 mmol/L (8-16); CREATININE, SERUM 0.82 mg/dL (0.57-1.11); POTASSIUM 3.6 mmol/L (3.5-5.1)
[2022-06-09] MEDS: BUPROPION HCL 150 MG TABCR PO SCH (08:54)
[2022-06-09] MEDS: SERTRALINE HCL 50 MG TAB PO SCH (08:54)
[2022-06-09] MEDS ORDERED: AMLODIPINE BESYLATE 10 MG TAB PO SCH (09:00)
[2022-06-09] MEDS: Morphine 4mg INJECTION 4 MG/ML INJ IV PRN (12:39)
[2022-06-09] MEDS ORDERED: FUROSEMIDE INJ 10 MG/ML 4 ML VIAL IV ONE (12:45)
[2022-06-09] MEDS: ONDANSETRON HCL INJ 2MG/ML 2ML 2 MG/ML VIAL IV PRN (12:50)
[2022-06-09] MEDS: DOCUSATE SODIUM 100 MG CAP PO SCH (12:51)
[2022-06-09] MEDS: ATORVASTATIN 40 MG TAB PO SCH (20:06)
[2022-06-09] MEDS: ACETAMINOPHEN 325 MG TAB PO PRN (20:07)
[2022-06-10] VITALS (9 sets, daily range): BP systolic 123–142; BP diastolic 70–91
[2022-06-10] MEDS: SODIUM CHLORIDE 0.9% 1000ML 1,000 ML IV SCH ×2 (01:12→12:11)
[2022-06-10 06:10] LABS: BASOPHILS % 0.2 % (0.0-1.0); EOSINOPHILS % 0.4 % (0.0-6.0); HEMATOCRIT 31.1 % (34.2-44.1); HEMOGLOBIN 9.8 g/dL (12.0-16.0); LYMPHOCYTES # (AUTO) 1.5 (1.0-3.2); LYMPHOCYTES % 17.8 % (18.0-39.1); MEAN CORPUSCULAR HEMOGLOBIN 27.1 pg (28-32); MEAN CORPUSCULAR HGB CONC 31.5 g/dL (31-35); MEAN CORPUSCULAR VOLUME 86.1 fL (81-99); MONOCYTES # (AUTO) 0.8 (0.2-0.8); MONOCYTES % 9.9 % (4.4-11.3); NEUTROPHILS # (AUTO) 5.8 (2.1-6.9); NEUTROPHILS % 70.7 % (38.7-80.0); PLATELET COUNT 218 x10e3/uL (140-360); RED BLOOD COUNT 3.61 x10e6/uL (3.6-5.1); RED CELL DISTRIBUTION WIDTH 14.8 % (11.7-14.4)
[2022-06-10 06:36] LABS: ALBUMIN 2.6 g/dL (3.5-5.0); ALBUMIN/GLOBULIN RATIO 0.6 (0.8-2.0); ANION GAP 13.4 mmol/L (8-16); CALCIUM 8.6 mg/dL (8.4-10.2); CREATININE, SERUM 0.9 mg/dL (0.57-1.11); POTASSIUM 3.4 mmol/L (3.5-5.1)
[2022-06-10] MEDS: BUPROPION HCL 150 MG TABCR PO SCH (07:59)
[2022-06-10] MEDS: DOCUSATE SODIUM 100 MG CAP PO SCH (07:59)
[2022-06-10] MEDS: SERTRALINE HCL 50 MG TAB PO SCH (07:59)
[2022-06-10] MEDS ORDERED: POTASSIUM BICARBONATE/CIT AC 20 MEQ TABLET.EFF PO ONE (12:00)
[2022-06-10] MEDS: Morphine 4mg INJECTION 4 MG/ML INJ IV PRN (15:29)
[2022-06-10] MEDS: ONDANSETRON HCL INJ 2MG/ML 2ML 2 MG/ML VIAL IV PRN (15:29)
[2022-06-10] MEDS: ATORVASTATIN 40 MG TAB PO SCH (20:53)
[2022-06-10] MEDS ORDERED: FUROSEMIDE INJ 10 MG/ML 2 ML VIAL IV ONE (22:30)
[2022-06-11 00:12] VITALS: BP 143/90
[2022-06-11 06:04] VITALS: BP 121/69
[2022-06-11 08:04] VITALS: BP 137/80
[2022-06-11 08:45] VITALS: BP 137/80
[2022-06-11] MEDS: SERTRALINE HCL 50 MG TAB PO SCH (09:00)
[2022-06-11] MEDS: BUPROPION HCL 150 MG TABCR PO SCH (09:00)
[2022-06-11] MEDS: DOCUSATE SODIUM 100 MG CAP PO SCH (09:00)
[2022-06-11] MEDS: ACETAMINOPHEN 325 MG TAB PO PRN (10:37)
[2022-06-11 11:47] VITALS: BP 134/83
[2022-06-11] MEDS ORDERED: Tylenol #3 PO (12:17)
[2022-06-11] MEDS ORDERED: AMOX TR-K CLV1 EAC2 PO (12:19)
== END 2022-06-11 14:34 | disposition home or self-care (01) | DRG 872 ==
LOC: ER 17:50 → ERHOLD 20:01 → MED/SURG2 22:32
PROVIDERS: ADMIT Internal Medicine; ATTEND Internal Medicine
DX: A41.9 Sepsis, unspecified organism (principal); N10 Acute pyelonephritis; N21.0 Calculus in bladder; I10 Essential (primary) hypertension; F32.A Depression, unspecified; F41.9 Anxiety disorder, unspecified; D63.8 Anemia in other chronic diseases classified elsewhere; N20.0 Calculus of kidney; E78.5 Hyperlipidemia, unspecified
CPT/HCPCS: 36415; 71045; 74176; 80048; 80053; 81001; 83605; 83970; 84550; 85025; 87040; 87086; 96361; 99284; J1885; J1940; J2270; J2405; J2543; J3480; J7030

== ENCOUNTER → 2024-10-01 | Outpatient (REF) | payer OTHER ==
[~2024-10-01] MED LIST changes: +AMLODIPINE BESY10 MG PO; +AMOX TR-K CLV1 EAC2 PO; +ARNUITY ELLIPT50 MCG INH; +BENICAR5 MG PO; +GABAPENTIN300 MG PO; +HYDROXYCHLOROQ200 MG PO; +LANSOPRAZOLE30 MG; +PANTOPRAZOLE SO40 MG PO; +TIZANIDINE HCL4 MG PO; +Tylenol #3 PO
[2024-10-01 12:27] LABS: BASOPHILS % 0.4 % (0.0-1.0); EOSINOPHILS % 3.7 % (0.0-6.0); LYMPHOCYTES % 25.7 % (18.0-39.1); MONOCYTES % 10.1 % (4.4-11.3); NEUTROPHILS % 59.8 % (38.7-80.0); RED CELL DISTRIBUTION WIDTH 14.1 % (11.7-14.4)
[2024-10-01 12:53] LABS: EST GLOMERULAR FILTRATION RATE 86.0 ML/MIN (>=60)
== END ==
LOC: RAD 12:03 → EDSTATUS 10-07 11:30
PROVIDERS: ATTEND Surgery
DX: Z01.810 Encounter for preprocedural cardiovascular examination (principal); Z01.812 Encounter for preprocedural laboratory examination; K43.6 Other and unspecified ventral hernia with obstruction, without gangrene
CPT/HCPCS: 36415; 80048; 85025; 93005